=== PATIENT | male | born 1990 | race Caucasian/White ===

== ENCOUNTER 2018-05-04 20:44 | Emergency (ER) | payer OTHER, MEDICAID, SELFPAY ==
[2018-05-04 20:48] VITALS: BP 136/81; PULSE 85; RESP 16; TEMP 36.9; O2SAT 97; BMI 29.8
[2018-05-04] MEDS: TET,DIPH,PERTUSS(ACELL),VAC/PF 0.5 ML SYRINGE IM (20:58)
--- NOTE | 2018-05-04 21:08 | DI.RAD.S_ITS ---
PROCEDURE: XR FOOT RT MIN 3V INDICATIONS: Foot pain TECHNIQUE: 3 views of the foot were acquired. COMPARISON: None. FINDINGS: Bones: No fractures or dislocations. No suspicious bony lesions. Soft tissues: No tibiotalar joint effusion. Achilles tendon appears normal. There is soft tissue swelling over the plantar aspect of the forefoot. IMPRESSION: Apparent soft tissue swelling over the plantar aspect of the forefoot where no gas in the soft tissues or foreign body can be seen. No underlying osteomyelitis found. Dictated by: Andres Garcia M.D. on 05/04/2018 at 21:44 Approved by: Andres Garcia M.D. on 05/04/2018 at 21:49
[2018-05-04 22:30] VITALS: BP 127/83; PULSE 90; RESP 15; O2SAT 99
[2018-05-04] MEDS: levoFLOXacin 500 MG TABLET PO (22:43)
[2018-05-04 22:57] VITALS: BP 127/83; PULSE 81; RESP 16; TEMP 36.9; O2SAT 99
--- NOTE | 2018-05-05 04:20 | ED_ITS ---
HPI - Wound/Laceration General Chief Complaint: Wound/Laceration Stated Complaint: Stepped on sury Nail Time Seen by Provider: 05/04/18 21:00 Source: patient Mode of arrival: ambulatory Limitations: no limitations History of Present Illness HPI narrative: Patient presents to the emergency department for evaluation of a left foot injury after stepping a relatively clean nail while wearing a sandal. Patient has increased pain while ambulating. He denies any numbness, tingling or weakness. He has had no fever or chills. Patient unclear when last tetanus was, will update today Onset (ago): minute(s) Extremity Location: Left: foot Place: outdoors Context: accidental Associated symptoms: pain Related Data Previous Rx's Medication Instructions Recorded albuterol sulfate [Ventolin HFA] 0 puff INH Q4HP PRN #1 ea 07/20/16 ibuprofen 800 mg PO Q6HP PRN #60 tab 03/07/17 ciprofloxacin HCl 500 mg PO BID #14 tab 05/04/18 Allergies Allergy/AdvReac Type Severity Reaction Status Date / Time No Known Allergies Allergy Uncoded 12/24/17 12:39 Review of Systems Review of Systems All systems reviewed & are unremarkable except as noted in HPI and below Constitutional Denies chills, Denies fever(s), Denies lethargy and Denies weakness Eyes Denies change in vision, Denies eye discharge, Denies irritation and Denies loss of vision ENT Ears, Nose, Mouth, and Throat: Denies change in voice, Denies neck pain and Denies sore throat Cardiovascular Denies chest pain, Denies irregular heart rhythm, Denies lightheadedness, Denies palpitations, Denies dyspnea, Denies dyspnea on exertion and Denies orthopnea Respiratory Denies cough, Denies dyspnea, Denies dyspnea on exertion and Denies wheezing Gastrointestinal Gastrointestinal: Denies abdominal pain, Denies change in bowel habits, Denies diarrhea, Denies nausea and Denies vomiting Genitourinary Denies hematuria, Denies flank pain, Denies urinary incontinence and Denies urinary urgency Musculoskeletal Reports limited range of motion and Denies neck pain Integumentary/Breasts Denies pruritus, Denies erythema, Denies rash and Reports wounds Neurologic Denies confusion, Denies loss of vision and Denies weakness Psychiatric Denies anxiety, Denies confusion, Denies depression, Denies homicidal ideation and Denies suicidal ideation Endocrine Denies palpitations Hematologic/Lymphatic Denies easy bruising Allergic/Immunologic Denies wheezing Exam Narrative Exam Narrative: GEN: AOx3 and in mild distress EYES: Pupils are equal, round, and reactive to light and accommodation. Extraoccular muscles are intact bilaterally. There is no subconjunctival hemorrhage or exudate. CHEST: Lungs are clear to auscultation bilaterally and free of wheezes, rales, or rhonchi. Heart rate is regular rhythm, there are no murmurs, clicks, rubs, or gallops. There is no chest wall tenderness. ABD: Abdomen is soft and nontender. There is no guarding or rebound. Bowel sounds are normal in all 4 quadrants. There is no mass or organomegaly. EXT: Small puncture wound on plantar surface of left foot, no obvious foreign body Full painless ROM of all extremities with no loss of sensation or strength. SKIN: Warm, pink, and dry. No erythema or rash Initial Vital Signs Initial Vital Signs: Vital Signs Temperature 98.5 F 05/04/18 20:48 Pulse Rate 85 05/04/18 20:48 Respiratory Rate 16 05/04/18 20:48 Blood Pressure 136/81 H 05/04/18 20:48 Pulse Oximetry 97 05/04/18 20:48 Course Orders Ordered: ED Orders 05/04/18 21:08 XR foot RT min 3V Stat Discontinued Medications Diphtheria/Tetanus/Acell Pertussis (Adacel) 0.5 ml IM .ONCE ONE Stop: 05/04/18 20:58 Last Admin: 05/04/18 20:58 Dose: 0.5 ml Levofloxacin (Levaquin) 500 mg PO NOW ONE Stop: 05/04/18 22:40 Last Admin: 05/04/18 22:43 Dose: 500 mg Vital Signs - 8 hr 05/04/18 20:48 05/04/18 22:30 05/04/18 22:57 Temperature 98.5 F 98.5 F Pulse Rate 85 90 81 Respiratory Rate 16 15 16 Blood Pressure 136/81 H 127/83 H Blood Pressure [Left Arm] 127/83 H Pulse Oximetry 97 99 99 MDM - Wound/Laceration Differential Diagnosis Differential diagnosis: Likely laceration, abscess, abrasion and avulsion of skin Imaging Data Foot Xray: Radiologist's impression: PROCEDURE: XR FOOT RT MIN 3V INDICATIONS: Foot pain TECHNIQUE: 3 views of the foot were acquired. COMPARISON: None. FINDINGS: Bones: No fractures or dislocations. No suspicious bony lesions. Soft tissues: No tibiotalar joint effusion. Achilles tendon appears normal. There is soft tissue swelling over the plantar aspect of the forefoot. IMPRESSION: Apparent soft tissue swelling over the plantar aspect of the forefoot where no gas in the soft tissues or foreign body can be seen. No underlying osteomyelitis found. Dictated by: Andres Garcia M.D. on 05/04/2018 at 21:44 Approved by: Andres Garcia M.D. on 05/04/2018 at 21:49 Discharge Plan Departure Patient Disposition: Home Clinical Impression: Puncture wound Discharge Date/Time: 05/04/18 22:58 Interventions: ED Discharge Assessment Last Done: 05/04/18 22:57 Instructions: DI for Puncture Wound Activity Restrictions/Additional Instructions: *You have been diagnosed with [ puncture wound left foot ] *What to do: *Take medications as directed *Follow up with your primary care provider in 2-3 days, call for an appointment. Let them know you were seen in the Emergency Department and that we ask that you be seen in follow up *Return to ER if you should have any new, worsening or concerning symptoms , such as [ increasing redness, swelling or pain] Prescriptions: New ciprofloxacin HCl 500 mg tablet 500 mg PO BID Qty: 14 RF: 0 No Action albuterol sulfate [Ventolin HFA] 90 MCG/PUFF HFA aerosol inhaler INH Q4HP PRNQty: 1 RF: 0 ibuprofen 800 MG tablet 800 mg PO Q6HP PRNQty: 60 RF: 0
== END 2018-05-04 22:58 | disposition home or self-care (01) ==
PROVIDERS: Emergency Provider Emergency Medicine
DX: S91.332A Puncture wound without foreign body, left foot, initial encounter (principal); W45.0XXA Nail entering through skin, initial encounter
CPT/HCPCS: 73630; 90471; 99283; 90715

== ENCOUNTER 2018-10-24 14:50 | Emergency (ER) | payer OTHER, MEDICAID, SELFPAY ==
[2018-10-24 15:20] VITALS: BP 142/87; PULSE 111; RESP 18; TEMP 40.1; O2SAT 94; BMI 29.8
[2018-10-24 15:36] VITALS: TEMP 40.1
[2018-10-24] MEDS: ACETAMINOPHEN 325 MG TABLET 975 MG PO (15:36)
[2018-10-24 15:37] VITALS: TEMP 40.1
[2018-10-24] MEDS: ONDANSETRON 4 MG ODT SL (15:37)
[2018-10-24] MEDS: IBUPROFEN 400 MG TABLET 800 MG PO (15:37)
[2018-10-24 16:54] VITALS: TEMP 38.6
[2018-10-24 16:55] VITALS: TEMP 38.6
--- NOTE | 2018-10-24 17:47 | ED.FEVER ---
HPI - Fever General Chief Complaint: Fever Stated Complaint: fever,cough,sick Time Seen by Provider: 10/24/18 15:35 Source: patient and family (mother) Mode of arrival: ambulatory Limitations: no limitations History of Present Illness HPI Narrative: This is a 28-year-old male who comes to the emergency department for fever, cough cold and congestion and upper upper respiratory area is little bit and his chest. Patient states he feels little short of breath. No chest pain or pressure. Nonproductive cough. Patient has had some nausea and vomiting about twice daily. He states he has not been drinking much fluids because of it. No diarrhea or constipation. No urinary issues. He states he hurts from his head to his toes. Patient is any other specific medical problems at this time. He has a history of cleft palate repair. He does not smoke. He has mother was diagnosed clinically with flu and started on Tamiflu in the recent couple days. Related Data Previous Rx's Medication Instructions Recorded albuterol sulfate [Ventolin HFA] 0 puff INH Q4HP PRN #1 ea 07/20/16 ibuprofen 800 mg PO Q6HP PRN #60 tab 03/07/17 ciprofloxacin HCl 500 mg PO BID #14 tab 05/04/18 oseltamivir [Tamiflu] 75 mg PO Q12H 5 Days #9 cap 10/24/18 Allergies Allergy/AdvReac Type Severity Reaction Status Date / Time No Known Drug Allergies Allergy Verified 10/24/18 15:37 Review of Systems Review of Systems ROS Unobtainable: All systems reviewed & are unremarkable except as noted in HPI and below Constitutional Reports chills, Reports fever(s), Denies headache(s), Denies lethargy, Reports malaise and Denies weakness ENT Ears, Nose, Mouth, and Throat: Denies headache(s) and Reports nasal congestion Cardiovascular Denies chest pain, Denies syncope, Denies rapid heart rate, Denies edema, Reports dyspnea and Denies dyspnea on exertion Respiratory Denies change in phlegm color, Reports chest congestion, Reports cough, Denies hemoptysis, Denies excessive phlegm production, Denies pain on inspiration, Denies pain with cough, Reports dyspnea, Denies dyspnea on exertion, Denies stridor and Denies wheezing Gastrointestinal Gastrointestinal: Denies abdominal pain, Denies change in bowel habits, Denies diarrhea, Reports nausea and Reports vomiting Genitourinary Denies hematuria, Denies flank pain, Denies urinary frequency, Denies urinary hesitancy, Denies urinary incontinence and Denies urinary urgency Musculoskeletal Reports myalgias Integumentary/Breasts Denies rash Neurologic Denies syncope, Denies headache(s) and Denies weakness Allergic/Immunologic Denies wheezing [facility] Social History Smoking Status: Never smoker Social History Smoking Status: Never smoker Exam Narrative Exam Narrative: GEN: well nourished, male , alert and oriented x 3, patient appears to be in mild distress. Patient is sweaty. HEENT: Atraumatic, pupils are equal round reactive to light, extraocular movements are intact, nares are clear, TMs are clear with no fluid, there is no conjunctival pallor. Throat is clear without any exudates, erythema, tonsillar enlargement or uvular deviation HEART: Regular rate and rhythm without murmur, clicks, rubs. LUNGS:Lungs clear to auscultation, no wheezes, rales, crackles, chest moves symmetrically ABD:bowel sounds normal, soft, non-tender, no guarding, rebound, rigidity, no masses noted, no hepatosplenomegaly :No CVA tenderness MSCL: Non-tender, no muscle atrophy, muscles strength 5/5 upper and lower extremities, full range of motion, normal gait NEURO:CN 2-12 intact, sensation normal SKIN: no rash, no petechiae Initial Vital Signs Initial Vital Signs: Vital Signs Temperature 104.1 F H 10/24/18 15:20 Pulse Rate 111 H 10/24/18 15:20 Respiratory Rate 18 10/24/18 15:20 Blood Pressure 142/87 H 10/24/18 15:20 Pulse Oximetry 94 10/24/18 15:20 Course Orders Ordered: ED Orders 10/24/18 14:00 FLU A and B [Influenza A and B by PCR Rapid] Stat Discontinued Medications Acetaminophen (Tylenol) 975 mg PO NOW ONE Stop: 10/24/18 15:36 Last Admin: 10/24/18 15:36 Dose: 975 mg Ibuprofen (Advil) 800 mg PO NOW ONE Stop: 10/24/18 15:36 Last Admin: 10/24/18 15:37 Dose: 800 mg Ondansetron HCl (Zofran Odt) 4 mg SL NOW ONE Stop: 10/24/18 15:36 Last Admin: 10/24/18 15:37 Dose: 4 mg Ondansetron HCl (Zofran Odt Prepack) 1 bottle MISC SEEINSTR ONE Stop: 10/24/18 17:45 Last Admin: 10/24/18 17:50 Dose: 1 bottle Oseltamivir Phosphate (Tamiflu) 75 mg PO NOW ONE Stop: 10/24/18 17:44 Last Admin: 10/24/18 17:50 Dose: 75 mg Vital Signs - 8 hr 10/24/18 15:20 10/24/18 15:36 10/24/18 15:37 Temperature 104.1 F H 104.1 F H 104.1 F H Pulse Rate 111 H Respiratory Rate 18 Blood Pressure 142/87 H Blood Pressure [Left Arm] Pulse Oximetry 94 10/24/18 16:54 10/24/18 16:55 10/24/18 18:10 Temperature 101.4 F H 101.4 F H 100.8 F H Pulse Rate 99 H Respiratory Rate Blood Pressure Blood Pressure [Left Arm] 120/70 Pulse Oximetry 96 MDM - Fever Lab Data Attestation: I reviewed the patient's lab results. Lab Results 10/24/18 Range/Units 14:00 Influenza A & B (PCR) Positive, type a A (Negative) MDM Narrative Medical decision making narrative: Patient has not vomited in department but nauseated at times. Given zofran prepack. discussed risk/benefits of Tamiflu with patient and he elects to start as he is still in the window. First dose given in ED. Discharge Plan Departure Patient Disposition: Home Clinical Impression: Influenza Discharge Date/Time: 10/24/18 18:16 Interventions: ED Discharge Assessment Last Done: 10/24/18 18:15 Instructions: DI for Influenza -- Adult Activity Restrictions/Additional Instructions: Follow up with your physician in the next 5-7 days if symptoms are not resolving. Take Zofran sublingually/under the tongue every 6 hr as needed for nausea. Make sure your drinking plenty of fluids to stay hydrated. Continue Tamiflu twice daily x 5 days. Continue Tylenol up to 1000 mg every 8 hr and/or ibuprofen 600 mg every 6 hr as needed for fever and/or pain. Return to the emergency department for worsening symptoms, new shortness breath, chest pain or pressure, coughing up blood, passing out, persistent vomiting, signs of dehydration or other new or concerning symptoms. Prescriptions: New oseltamivir [Tamiflu] 75 mg capsule 75 mg PO Q12H 5 Days Qty: 9 RF: 0 No Action albuterol sulfate [Ventolin HFA] 90 MCG/PUFF HFA aerosol inhaler INH Q4HP PRNQty: 1 RF: 0 ibuprofen 800 MG tablet 800 mg PO Q6HP PRNQty: 60 RF: 0 ciprofloxacin HCl 500 mg tablet 500 mg PO BID Qty: 14 RF: 0
[2018-10-24] MEDS: OSELTAMIVIR 75 MG CAPSULE PO (17:50)
[2018-10-24] MEDS: ONDANSETRON 4 MG ODT PREPACK 1 BOTTLE MISC (17:50)
[2018-10-24 18:10] VITALS: BP 120/70; PULSE 99; TEMP 38.2; O2SAT 96
== END 2018-10-24 18:16 | disposition home or self-care (01) ==
PROVIDERS: Internal Medicine; Emergency Provider Emergency Medicine
DX: J11.1 Influenza due to unidentified influenza virus with other respiratory manifestations (principal)
CPT/HCPCS: 87400; 99282; 99283

== ENCOUNTER 2021-06-26 19:40 | Emergency (ER) | payer OTHER, MEDICAID, SELFPAY ==
--- NOTE | 2021-06-26 19:45 | DI.RAD.S_ITS ---
PROCEDURE: XR CHEST 2V INDICATIONS: cough TECHNIQUE: 2 views of the chest were acquired. COMPARISON: None. FINDINGS: Surgical changes and devices: None. Lungs and pleura: Lungs are clear. No pleural effusions or pneumothorax. Mediastinum: Mediastinal contours are normal. Heart size is normal. Bones and chest wall: No suspicious bony abnormalities. Soft tissues appear unremarkable. IMPRESSION: No consolidations. Dictated by: Patti De La Rosa M.D. on 06/26/2021 at 20:37 Approved by: Patti De La Rosa M.D. on 06/26/2021 at 20:37
[2021-06-26 19:48] VITALS: BP 153/89; PULSE 116; RESP 22; TEMP 36.1; O2SAT 97
--- NOTE | 2021-06-26 19:52 | ED.SOB ---
HPI - SOB/Dyspnea General Chief Complaint: Upper Respiratory Symptoms Stated Complaint: coughing, severe, headache, nausea Time Seen by Provider: 06/26/21 19:45 Source: patient Mode of arrival: Ambulatory Limitations: no limitations History of Present Illness HPI Narrative: 31-year-old male nonsmoker with history of asthma presents with a chief complaint of hacking type cough for the past few weeks and concern for COVID. He denies any fever or chills and states that on occasion he does bring up some off colored sputum. He denies any chest pain. He is not dizzy nor weak or lightheaded. He denies nausea or vomiting. He does state that after significant coughing he has developed some mild headache. This headache is worse when he coughs improves with rest. It has been improved with Tylenol and Motrin up until now. He denies of any neck. He has no neurologic symptoms blurred vision, trouble speech or extremity numbness, tingling or weakness. He did receive his COVID vaccine Related Data Previous Rx's Medication Instructions Recorded albuterol sulfate 90 mcg/actuation 0 puff INH Q4HP PRN #1 ea 07/20/16 aerosol inhaler (Ventolin HFA) ibuprofen 800 mg tablet 800 mg PO Q6HP PRN #60 tab 03/07/17 ciprofloxacin HCl 500 mg tablet 500 mg PO BID #14 tab 05/04/18 azithromycin 250 mg tablet See Rx Instructions .ROUTE 06/26/21 .COMPLEX #6 tab benzonatate 100 mg capsule 100 mg PO TID PRN #14 cap 06/26/21 (Juliette Fink) Allergies Allergy/AdvReac Type Severity Reaction Status Date / Time No Known Drug Allergies Allergy Verified 10/24/18 15:37 Review of Systems Review of Systems Narrative: GENERAL: Denies chills, fatigue, malaise, fever, sweats. HEENT: Denies sinus pain, ear pain, sore throat, difficulty swallowing, dizziness. RESPIRATORY: See HPI CARDIOVASCULAR: Denies chest pain, palpitations, orthopnea, edema, GASTROINTESTINAL: Denies nausea, vomiting, abdominal pain, diarrhea, constipation, melena. : Denies dysuria, frequency, incontinence, hematuria, urinary retention. MUSCULOSKELETAL: denies weakness, joint pain, or bony pain SKIN: Denies rash, skin lesions, or other NEUROLOGIC: See HPI PSYCHIATRIC: No concerning psychosocial issues. 12 point review of systems is negative except for those stated above Patient History Social History Smoking Status: Never smoker Smoking Status: Never smoker alcohol intake frequency: holidays/special occasions only Substance Use Type: does not use Exam Narrative Exam Narrative: GENERAL: [31] year old patient appears stated age. Well-developed patient, in mild distress. GCS 15 HEAD: Atraumatic. Normocephalic. EYES: Pupils equal round and reactive. Extraocular motions intact. No scleral icterus. No injection or drainage. ENT: Nose without bleeding, purulent drainage. Throat without erythema, tonsillar hypertrophy or exudate. Airway patent. NECK: Trachea midline. Non tender, no meningeal signs CARDIOVASCULAR: Regular rate and rhythm without murmurs, gallops, or rubs. RESPIRATORY: Largely clear to auscultation with some mild expiratory wheeze, deep breath illicits a cough. No obvious crackles, rales or rhonchi. No significant work of breathing, no need for supplemental oxygen GASTROINTESTINAL: Abdomen soft, non-tender, nondistended. EXTREMITIES: No edema or joint tenderness. BACK: Nontender without deformity or crepitance. No flank tenderness. NEURO: AOx3. SKIN: No rash or erythema of visible areas Initial Vital Signs Initial Vital Signs: Vital Signs Temperature 97 F L 06/26/21 19:48 Pulse Rate 116 H 06/26/21 19:48 Respiratory Rate 22 06/26/21 19:48 Blood Pressure 153/89 H 06/26/21 19:48 Pulse Oximetry 97 06/26/21 19:48 Course Orders Ordered: Discontinued Medications Acetaminophen (Acetaminophen 325 Mg Tablet) 650 mg PO NOW ONE Stop: 06/26/21 22:24 Last Admin: 06/26/21 22:32 Dose: 650 mg Documented by: OKSANA Albuterol (Albuterol Hfa Mdi 60 Puff/8 Gm Inhaler) 1 puff INH NOW ONE Stop: 06/26/21 22:24 Last Admin: 06/26/21 22:32 Dose: 1 puff Documented by: OKSANA Reevaluation(s) Reevaluation #1: Marked improvement with above-stated therapies Vital Signs Vital signs: Vital Signs - 8 hr 06/26/21 22:32 06/26/21 23:21 Pulse Rate 95 H 94 H Respiratory Rate 18 Blood Pressure 137/78 Pulse Oximetry 97 97 MDM - SOB/Dyspnea Lab Data Labs: Lab Results 06/26/21 Range/Units 19:50 SARS-CoV-2 (PCR) Negative (Negative) Imaging Data Chest x-ray: Radiologist's Impression: Ab Johnson??31??M??1990 ? Allergy/Adv: No Known Drug Allergies Close Chest X-Ray (Signed) Patti De La Rosa - 06/26/21 Foot X-Ray (Signed) Andres Garcia - 05/04/18 Radiology - Historical 03/07/17 Launch?[address] [address] XRay Report Signed Patient: Ab Johnson MR#: [id number] : 1990 Acct:[id number] Age/Sex: 31 / M Date of Service: 06/26/21 Loc: ED Accession Number: [id number] ?? Procedure: XR chest 2V Ordering Provider: Yobany Carbajal D.O. PROCEDURE:? XR CHEST 2V ? INDICATIONS:? cough ? TECHNIQUE:? 2 views of the chest were acquired.? ? COMPARISON:? None. ? FINDINGS:? ? Surgical changes and devices:? None.? ? Lungs and pleura:? Lungs are clear.? No pleural effusions or pneumothorax.? ? Mediastinum:? Mediastinal contours are normal.? Heart size is normal.? ? Bones and chest wall:? No suspicious bony abnormalities.? Soft tissues appear unremarkable.? ? IMPRESSION:? No consolidations. ? ? Dictated by: Patti De La Rosa M.D. on 06/26/2021 at 20:37 ? ? Approved by: Patti De La Rosa M.D. on 06/26/2021 at 20:37 ? MDM Narrative Medical decision making narrative: Patient has a very reassuring history and physical exam, his response to bronchodilators is reassuring. Chest x-ray shows no focal consolidation. Given his history and occasion to produce colored sputum I did cover for any atypical pneumonia. He has no evidence of respiratory distress, does not require supplemental oxygen. Headache considerations include, but not limited to: Subarachnoid hemorrhage, but unlikely as patient denies sudden onset of pain, not worst of life, or neck pain Meningitis considered, but thought unlikely given lack of Brudzinski's, Kernig's sign, altered mental status or fever Giant cell arteritis considered, but thought unlikely given lack of unilateral findings, pain in bahai, vision change HTN Emergency considered, but thought unlikely given normal vitals Other serious diagnoses considered unlikely given lack of red flag findings such as sudden onset, increasing frequency, immunocompromise, systemic signs (fever, chills, stiff neck, or rash), focal neurologic findings, trauma, blood thinners, etc. Discharge Plan Departure Patient Disposition: Home Clinical Impression: Cough, Atypical pneumonia Instructions: Cough Activity Restrictions/Additional Instructions: *You have been diagnosed with [ongoing cough, potentially due to atypical pneumonia. Chest x-ray is clear and your COVID swab was negative. *What to do: *Please continue to take your regular medications as directed. [ x] New medication prescriptions sent to your pharmacy: [x ] [ ] New medication written as a paper prescription [ ] No new medications given *Please follow up with your primary care provider in 2-3 days, call for an appointment. Let them know you were seen in the Emergency Department and that we ask that you be seen in follow up. We will electronically transmit a record of today's note if your PCP is in our system *If you do not have a primary care provider please contact the [facility] Resource line at [phone]. They will ask some questions about your medical history and help get you set up with a doctor in the community. *Return to Emergency Department if you should have any new, worsening or concerning symptoms, such as [fever greater than 101 F, shaking chills, worsening pain, persistent vomiting or other bothersome symptoms] Prescriptions: New azithromycin 250 mg tablet See Rx Instructions .ROUTE .COMPLEX Qty: 6 RF: 0 benzonatate [Tessalon Perles] 100 mg capsule 100 mg PO TID PRN (Reason: cough) Qty: 14 RF: 0 No Action albuterol sulfate [Ventolin HFA] 90 MCG/PUFF HFA aerosol inhaler 0 puff INH Q4HP PRNQty: 1 RF: 0 ibuprofen 800 MG tablet 800 mg PO Q6HP PRNQty: 60 RF: 0 ciprofloxacin HCl 500 mg tablet 500 mg PO BID Qty: 14 RF: 0
[2021-06-26 20:19] LABS: COVID19 -Nasal RAPID Negative (Negative)
[2021-06-26 22:25] VITALS: BP 136/88; PULSE 108; RESP 16; TEMP 35.1; O2SAT 96
[2021-06-26 22:32] VITALS: PULSE 95; RESP 18; O2SAT 97
[2021-06-26] MEDS: ACETAMINOPHEN 325 MG TABLET 650 MG PO (22:32)
[2021-06-26] MEDS: ALBUTEROL HFA MDI 60 PUFF/8 GM INHALER INH (22:32)
[2021-06-26 23:21] VITALS: BP 137/78; PULSE 94; O2SAT 97
== END 2021-06-26 23:36 | disposition home or self-care (01) ==
PROVIDERS: Emergency Provider Emergency Medicine
DX: J18.9 Pneumonia, unspecified organism (principal); R05.9 Cough, unspecified; Z20.822 Contact with and (suspected) exposure to COVID-19
CPT/HCPCS: 71046; 87635; 94640; 99283; C9803; A9270

== ENCOUNTER 2021-09-09 14:03 | Emergency (ER) | payer OTHER, MEDICAID, SELFPAY ==
[2021-09-09 14:09] VITALS: BP 155/79; PULSE 78; RESP 20; TEMP 36.4; O2SAT 99
--- NOTE | 2021-09-09 14:12 | DI.RAD.S_ITS ---
PROCEDURE: XR TIBIA FUBULA RT 2V INDICATIONS: fall TECHNIQUE: 2 views of the tibia and fibula were acquired. COMPARISON: None. FINDINGS: Bones: No fractures or dislocations. No suspicious bony lesions. Soft tissues: No suspicious soft tissue calcifications or masses. IMPRESSION: Normal right tibia and fibula. Dictated by: Olivier Minor M.D. on 09/09/2021 at 13:35 Approved by: Olivier Minor M.D. on 09/09/2021 at 13:35
--- NOTE | 2021-09-09 14:12 | DI.RAD.S_ITS ---
PROCEDURE: XR KNEE RT 3V INDICATIONS: fall TECHNIQUE: 3views of the knee were acquired. COMPARISON: None. FINDINGS: Bones: No acute fractures or dislocations. No suspicious bony lesions. Soft tissues: No joint effusion. No suspicious soft tissue calcifications. IMPRESSION: No acute osseous abnormality. If clinical suspicion and/or symptoms persist, additional imaging with repeat plain films, or advanced imaging (e.g. CT, MRI) may be helpful for further assessment. Dictated by: Sánchez Esparza M.D. on 09/09/2021 at 14:38 Approved by: Sánchez Esparza M.D. on 09/09/2021 at 14:39
--- NOTE | 2021-09-09 14:49 | ED_ITS ---
HPI - Extremity Injury (Lower) <Tonny Ward PA-C - Last Filed: 09/09/21 17:52> General Chief Complaint: Extremity Injury, Lower Stated Complaint: pt. fell 2 hours ago Time Seen by Provider: 09/09/21 14:19 Source: patient Mode of arrival: Ambulatory History of Present Illness HPI Narrative: Patient is a 31-year-old male presenting to the emergency department today for an evaluation right knee pain. Patient states that he was outside removing snow from his mother's car when he came inside to use restroom and slipped on the floor. He states that he landed directly on his right knee and began to experience pain immediately after the fall. Of note, patient states he is not feel dizzy or lightheaded prior to falling any denies hitting his head or losing consciousness as a result of the fall. Patient denies fever, chills, chest pain, cough, shortness of breath, nausea, vomiting, diarrhea, dysuria, hematuria, or numbness and tingling in the bilateral lower extremities. No other concerns were voiced at this time. Related Data Previous Rx's Medication Instructions Recorded albuterol sulfate 90 mcg/actuation 0 puff INH Q4HP PRN #1 ea 07/20/16 aerosol inhaler (Ventolin HFA) ibuprofen 800 mg tablet 800 mg PO Q6HP PRN #60 tab 03/07/17 ciprofloxacin HCl 500 mg tablet 500 mg PO BID #14 tab 05/04/18 azithromycin 250 mg tablet See Rx Instructions .ROUTE 06/26/21 .COMPLEX #6 tab benzonatate 100 mg capsule 100 mg PO TID PRN #14 cap 06/26/21 (Juliette Fink) Allergies Allergy/AdvReac Type Severity Reaction Status Date / Time No Known Drug Allergies Allergy Verified 10/24/18 15:37 Review of Systems <Tonny Ward PA-C - Last Filed: 09/09/21 17:52> Constitutional Constitutional: Denies chills, Denies fatigue, Denies fever(s), Denies frequent falls, Denies lethargy and Denies weakness Eyes Eyes: Denies loss of vision ENT Ears, Nose, Mouth, and Throat: Denies dizziness and Denies neck pain Cardiovascular Cardiovascular: Denies chest pain, Denies irregular heart rhythm, Denies lightheadedness, Denies palpitations, Denies dyspnea, Denies dyspnea on exertion and Denies orthopnea Respiratory Respiratory: Denies cough, Denies dyspnea, Denies dyspnea on exertion and Denies wheezing Gastrointestinal Gastrointestinal: Denies abdominal pain, Denies change in bowel habits, Denies diarrhea, Denies nausea and Denies vomiting Genitourinary Genitourinary: Denies hematuria, Denies flank pain, Denies urinary incontinence and Denies urinary urgency Musculoskeletal Musculoskeletal: Denies back pain, Reports arthralgias (Right knee), Denies muscle weakness, Denies neck pain, Denies numbness and Denies tingling Integumentary/Breasts Skin/Breast: Denies pruritus, Denies erythema, Denies rash and Denies wounds Neurologic Neurologic: Denies behavioral changes, Denies confusion, Denies dizziness, Denies frequent falls, Denies loss of vision, Denies numbness, Denies tingling and Denies weakness Psychiatric Psychiatric: Denies behavioral changes and Denies confusion Endocrine Endocrine: Denies fatigue and Denies palpitations Allergic/Immunologic Allergic/Immunologic: Denies wheezing Patient History <Tonny Ward PA-C - Last Filed: 09/09/21 17:52> Social History Smoking Status: Never smoker Smoking Status: Never smoker alcohol intake frequency: holidays/special occasions only Substance Use Type: does not use Exam <Tonny Ward PA-C - Last Filed: 09/09/21 17:52> Narrative Exam Narrative: GENERAL: 31 year old patient appears stated age. Well-developed patient, in no acute distress. HEAD: Atraumatic. Normocephalic. EYES: Pupils equal round and reactive. Extraocular motions intact. No scleral icterus. No injection or drainage. ENT: Nose without bleeding, purulent drainage. Throat without erythema, tonsillar hypertrophy or exudate. Airway patent. NECK: Trachea midline. Non tender CARDIOVASCULAR: Regular rate and rhythm without murmurs, gallops, or rubs. RESPIRATORY: Clear to auscultation. Breath sounds equal bilaterally. No wheezes, rales, or rhonchi. GASTROINTESTINAL: Abdomen soft, non-tender, nondistended. EXTREMITIES: No edema or joint tenderness. No appreciable joint laxity on exam. No deformity, ecchymosis, crepitance, or erythema noted over the right knee. BACK: Nontender without deformity or crepitance. No flank tenderness. NEURO: AOx3. SKIN: No rash or erythema of visible areas Initial Vital Signs Initial Vital Signs: Vital Signs Temperature 97.5 F L 09/09/21 14:09 Pulse Rate 78 09/09/21 14:09 Respiratory Rate 20 09/09/21 14:09 Blood Pressure 155/79 H 09/09/21 14:09 Pulse Oximetry 99 09/09/21 14:09 Cardio Pulses: dorsalis pedis present bilaterally <Yobany Carbajal DO - Last Filed: 09/13/21 03:52> Initial Vital Signs Initial Vital Signs: Vital Signs Temperature 97.5 F L 09/09/21 14:09 Pulse Rate 78 09/09/21 14:09 Respiratory Rate 20 09/09/21 14:09 Blood Pressure 155/79 H 09/09/21 14:09 Pulse Oximetry 99 09/09/21 14:09 Course <AGUSTIN Houston Last Filed: 09/09/21 17:52> Course Course Narrative: Right knee x-ray, right tibia and fibula x-rays ordered. Orders Ordered: ED Orders 09/09/21 14:12 XR knee RT 3V Stat XR tibia fibula RT 2V Stat Vital Signs Vital signs: Vital Signs - 8 hr 09/09/21 14:09 Temperature 97.5 F L Pulse Rate 78 Respiratory Rate 20 Blood Pressure 155/79 H Pulse Oximetry 99 <oYbany Carbajal DO - Last Filed: 09/13/21 03:52> Orders Ordered: ED Orders 09/09/21 14:12 XR knee RT 3V Stat XR tibia fibula RT 2V Stat Vital Signs Vital signs: Vital Signs - 8 hr 09/09/21 14:09 Temperature 97.5 F L Pulse Rate 78 Respiratory Rate 20 Blood Pressure 155/79 H Pulse Oximetry 99 MDM - Extremity Injury (Lower) <AGUSTIN [place] Last Filed: 09/09/21 17:52> Imaging Data Extremity x-ray #1: Radiologist's Impression: PROCEDURE:? XR TIBIA FUBULA RT 2V ? INDICATIONS:? fall ? TECHNIQUE:? 2 views of the tibia and fibula were acquired.? ? COMPARISON:? None. ? FINDINGS:? ? Bones:? No fractures or dislocations.? No suspicious bony lesions.? ? Soft tissues:? No suspicious soft tissue calcifications or masses.? ? IMPRESSION:? Normal right tibia and fibula. ? ? Dictated by: Olivier Minor M.D. on 09/09/2021 at 13:35 ? ? Approved by: Olivier Minor M.D. on 09/09/2021 at 13:35 ? Extremity x-ray #2: Radiologist's Impression: PROCEDURE:? XR KNEE RT 3V ? INDICATIONS:? fall ? TECHNIQUE:? 3views of the knee were acquired.? ? COMPARISON:? None. ? FINDINGS:? ? Bones:? No acute fractures or dislocations.? No suspicious bony lesions.? ? Soft tissues:? No joint effusion.? No suspicious soft tissue calcifications.? ? ? IMPRESSION:? No acute osseous abnormality.? If clinical suspicion and/or symptoms persist, additional imaging with repeat plain films, or advanced imaging (e.g. CT, MRI) may be helpful for further assessment. ? ? Dictated by: Sánchez Esparza M.D. on 09/09/2021 at 14:38 ? ? Approved by: Sánchez Esparza M.D. on 09/09/2021 at 14:39 ? MDM Narrative Medical decision making narrative: To consider fracture versus dislocation versus sprain versus strain. Overall physical examination, history, and imaging in the ER today reassuring. Discussed with patient the results of x-rays. At this time patient feels comfortable being discharged home. Strict return precautions were discussed with the patient prior to discharge. Discharge Plan Departure Patient Disposition: Home Clinical Impression: Acute knee pain Instructions: DI for Knee Pain Activity Restrictions/Additional Instructions: *You have been diagnosed with acute right knee pain *What to do: *Please continue to take your regular medications as directed. [ ] New medication prescriptions sent to your pharmacy: [ ] [ ] New medication written as a paper prescription [X] No new medications given *Please follow up with your primary care provider in 2-3 days, call for an appointment. Let them know you were seen in the Emergency Department and that we ask that you be seen in follow up. We will electronically transmit a record of today's note if your PCP is in our system *If you do not have a primary care provider please contact the [facility] Resource line at [phone]. They will ask some questions about your medical history and help get you set up with a doctor in the community. *Return to Emergency Department if you should have any new, worsening or concerning symptoms, such as fever greater than 101 F, shaking chills, worsening pain, persistent vomiting or other bothersome symptoms. Prescriptions: No Action albuterol sulfate [Ventolin HFA] 90 MCG/PUFF HFA aerosol inhaler 0 puff INH Q4HP PRNQty: 1 0RF ibuprofen 800 MG tablet 800 mg PO Q6HP PRNQty: 60 0RF azithromycin 250 mg tablet See Rx Instructions .ROUTE .COMPLEX Qty: 6 0RF Rx Instructions: take 500 mg today (day 1), then 250 mg for 4 days (days 2-5) benzonatate [Tessalon Perles] 100 mg capsule 100 mg PO TID PRN (Reason: cough) Qty: 14 0RF ciprofloxacin HCl 500 mg tablet 500 mg PO BID Qty: 14 0RF <Yobany Carbajal DO - Last Filed: 09/13/21 03:52> Cosign ED Attending Cosignature Attestation: I was immediately available in the department for consultation. This documentation has been reviewed and I agree with assessment and plan. Supervised by Yobany Carbajal DO
== END 2021-09-09 14:57 | disposition home or self-care (01) ==
PROVIDERS: Emergency Provider Physician Assistant
DX: M25.561 Pain in right knee (principal)
CPT/HCPCS: 73562; 73590; 99283

== ENCOUNTER → 2021-10-01 17:40 | Outpatient (CLI) | payer OTHER, MEDICAID, SELFPAY ==
[2021-10-01 18:14] LABS: COVID19 -Nasal RAPID Negative (Negative)
== END ==
PROVIDERS: Referring Provider Nurse Practitioner Family; Visit Provider Nurse Practitioner Family
DX: Z20.822 Contact with and (suspected) exposure to COVID-19 (principal)
CPT/HCPCS: 87635

== ENCOUNTER 2022-01-12 19:34 | Emergency (ER) | payer OTHER, MEDICAID, SELFPAY ==
--- NOTE | 2022-01-12 19:36 | ED.LOWEXIN ---
HPI - Extremity Injury (Lower) General Chief Complaint: Extremity Injury, Lower Stated Complaint: left ankle injury Time Seen by Provider: 01/12/22 19:36 History of Present Illness HPI Narrative: 31-year-old male nonsmoker with noncontributory medical history presents with family in the chief complaint of a left ankle injury suffered just prior to arrival. He states that he was walking and felt a pop in his ankle and then rolled it which caused him to fall. He now has pain with palpation and ambulation in the lateral and medial aspects of left ankle. He denies any numbness, tingling or weakness. He has no knee or hip injury that is associated. He has no chest pain or shortness of breath and denies any prodromal symptoms contributing to his fall such as dizziness, weakness or lightheadedness Related Data Previous Rx's Medication Instructions Recorded albuterol sulfate 90 mcg/actuation 0 puff INH Q4HP PRN #1 ea 07/20/16 aerosol inhaler (Ventolin HFA) ibuprofen 800 mg tablet 800 mg PO Q6HP PRN #60 tab 03/07/17 ciprofloxacin HCl 500 mg tablet 500 mg PO BID #14 tab 05/04/18 azithromycin 250 mg tablet See Rx Instructions .ROUTE 06/26/21 .COMPLEX #6 tab benzonatate 100 mg capsule 100 mg PO TID PRN #14 cap 06/26/21 (Juliette Fink) Allergies Allergy/AdvReac Type Severity Reaction Status Date / Time No Known Drug Allergies Allergy Verified 10/24/18 15:37 Review of Systems Review of Systems Narrative: GENERAL: Denies chills, fatigue, malaise, fever, sweats. HEENT: Denies sinus pain, ear pain, sore throat, difficulty swallowing, dizziness. RESPIRATORY: Denies dyspnea, cough, wheezing, hemoptysis, sputum. CARDIOVASCULAR: Denies chest pain, palpitations, orthopnea, edema, GASTROINTESTINAL: Denies nausea, vomiting, abdominal pain, diarrhea, constipation, melena. : Denies dysuria, frequency, incontinence, hematuria, urinary retention. MUSCULOSKELETAL: See HPI SKIN: Denies rash, skin lesions, or other NEUROLOGIC: Denies weakness, headache, numbness, change in speech, confusion, seizures, incoordination. PSYCHIATRIC: No concerning psychosocial issues. 12 point review of systems is negative except for those stated above Patient History Social History Smoking Status: Never smoker Smoking Status: Never smoker alcohol intake frequency: holidays/special occasions only Substance Use Type: does not use Exam Narrative Exam Narrative: GEN: AOx3 and in mild distress EYES: Pupils are equal, round, and reactive to light and accommodation. Extraoccular muscles are intact bilaterally. There is no subconjunctival hemorrhage or exudate. CHEST: Lungs are clear to auscultation bilaterally and free of wheezes, rales, or rhonchi. Heart rate is regular rhythm, there are no murmurs, clicks, rubs, or gallops. There is no chest wall tenderness. ABD: Abdomen is soft and nontender. There is no guarding or rebound. Bowel sounds are normal in all 4 quadrants. There is no mass or organomegaly. EXT: Full but painful range of motion of left ankle with swelling but no obvious deformity, no evidence of ligamentous instability. No pain on squeeze test or palpation of knee or foot. This is closed, isolated and neurovascularly intact, pain on palpation of bilateral malleolus, no anterior pain overlying talus SKIN: Warm, pink, and dry. No erythema or rash Initial Vital Signs Initial Vital Signs: Vital Signs Temperature 97.6 F 01/12/22 19:42 Pulse Rate 97 H 01/12/22 19:42 Respiratory Rate 18 01/12/22 19:42 Blood Pressure 141/80 H 01/12/22 19:42 Pulse Oximetry 96 01/12/22 19:42 Procedures Orthopedic Splinting/Casting Injury #1: Side: left Lower Extremity Injury Location: ankle Lower Extremity Immobilizer: boot orthosis Post splinting neuro exam: intact Post splinting vascular exam: intact Placed by: Nursing Course Orders Ordered: ED Orders 01/12/22 19:38 XR ankle LT min 3V Stat Vital Signs Vital signs: Vital Signs - 8 hr 01/12/22 19:42 Temperature 97.6 F Pulse Rate 97 H Respiratory Rate 18 Blood Pressure 141/80 H Pulse Oximetry 96 MDM - Extremity Injury (Lower) Imaging Data Extremity x-ray #1: Radiologist's Impression: No fracture or dislocation Discharge Plan Departure Patient Disposition: Home Clinical Impression: Acute left ankle pain Instructions: DI for Ankle Sprain Activity Restrictions/Additional Instructions: *You have been diagnosed with [Left ankle sprain with questionable, old injury to Talus. Xrays have yet to be ready by the radiologist and if there is a discrepancy in diagnosis or plan I will call you ] *What to do: *Please continue to take your regular medications as directed. [ ] New medication prescriptions sent to your pharmacy: [ ] [ ] New medication written as a paper prescription [x] Tylenol and occasional Motrin for pain *Please follow up with Dr. Jeremiah Brooks] of [facility] in 2-3 days, call for an appointment. Let them know you were seen in the Emergency Department and that we ask that you be seen in follow up. We will electronically transmit a record of today's note if your PCP is in our system *Return to Emergency Department if you should have any new, worsening or concerning symptoms, such as [worsening pain, significant swelling, cold extremities, numbness, tingling, weakness or other bothersome symptoms Splint Care: Keep splint clean and dry. Elevated affected body part to decrease swelling. OK to use ice pack on the affected body part. Use for 15-20 minutes each time, for 5-6x per day. If you develop worsening pain, numbness, tingling, discoloration of the affected body part, loosen the splint and either see your doctor for an urgent re-assessment, or return to the Emergency Department. Return to the Emergency Department for any new or worsening symptoms. Prescriptions: No Action albuterol sulfate [Ventolin HFA] 90 MCG/PUFF HFA aerosol inhaler 0 puff INH Q4HP PRNQty: 1 0RF ibuprofen 800 MG tablet 800 mg PO Q6HP PRNQty: 60 0RF azithromycin 250 mg tablet See Rx Instructions .ROUTE .COMPLEX Qty: 6 0RF Rx Instructions: take 500 mg today (day 1), then 250 mg for 4 days (days 2-5) benzonatate [Tessalon Perles] 100 mg capsule 100 mg PO TID PRN (Reason: cough) Qty: 14 0RF ciprofloxacin HCl 500 mg tablet 500 mg PO BID Qty: 14 0RF Referrals: Miscellaneous,[facility] [Primary Care Provider] - Lulu Brooks MD [Physician] -
--- NOTE | 2022-01-12 19:38 | DI.RAD.S_ITS ---
PROCEDURE: XR ANKLE LT MIN 3V INDICATIONS: pain and swelling after injury TECHNIQUE: 3 views of the ankle were acquired. COMPARISON: None. FINDINGS: Bones: No fractures or dislocations. Ankle mortise is normally aligned. No suspicious bony lesions. Soft tissues: No tibiotalar joint effusion. Achilles tendon appears normal. IMPRESSION: No visualized acute fracture or dislocation. However, if clinical concern and/or pain persist, short interval imaging followup in 7-10 days is recommended, as occult injury cannot be definitively excluded. Dictated by: Patti De La Rosa M.D. on 01/12/2022 at 20:08 Approved by: Patti De La Rosa M.D. on 01/12/2022 at 20:08
[2022-01-12 19:42] VITALS: BP 141/80; PULSE 97; RESP 18; TEMP 36.4; O2SAT 96; BMI 30.3
== END 2022-01-12 20:10 | disposition home or self-care (01) ==
PROVIDERS: Emergency Provider Emergency Medicine
DX: M25.572 Pain in left ankle and joints of left foot (principal); X50.1XXA Overexertion from prolonged static or awkward postures, initial encounter
CPT/HCPCS: 73610; 99281; 99283

== ENCOUNTER → 2022-03-01 09:15 | Outpatient (CLI) | payer OTHER, MEDICAID, SELFPAY ==
[2022-03-01 09:52] LABS: Add Manual Diff / Slide Review NO; Basophils Absolute Auto 0 /uL (0-100); Basophils Percent Auto 0.6 % (0-2); Eosinophils Absolute Auto 100 /uL (0-450); Eosinophils Percent Auto 2.1 % (2-4); Hematocrit 41.7 % (41-53); Hemoglobin 14.8 g/dL (13.5-17.5); Lymphocytes Absolute Auto 2200 /uL (1100-4500); Mean Corpuscular HGB Conc 35.4 % (30-36); Mean Corpuscular Hemoglobin 29.9 PG (26-34); Mean Corpuscular Volume 84.6 fL (80-100); Monocytes Absolute Auto 600 /uL (0-900); Monocytes Percent Auto 9.4 % (3-14); Neutrophils Absolute Auto 3200 /uL (1500-7000); Neutrophils Percent Auto 51.9 % (50-75); Platelet Count 258 X10^3/uL (150-400); Red Blood Cell Count 4.93 X10^6/uL (4.5-5.9); Red Cell Distribution Width 12.9 % (11.6-14.8); White Blood Cell Count 6.1 X10^3/uL (4.5-11.0)
[2022-03-01 09:54] LABS: Appearance Urine UA CLEAR; Bilirubin Urine UA NEGATIVE (NEGATIVE); Color Urine UA YELLOW; Glucose Urine UA NEGATIVE (Negative); Ketones Urine UA NEGATIVE (NEGATIVE); Leukocyte Esterase Urine UA NEGATIVE (NEGATIVE); Nitrite Urine UA NEGATIVE (Negative); Occult Blood Urine UA 1+ (Negative); Protein Urine UA NEGATIVE (Negative); Urobilinogen Urine UA 0.2 E.U./dL (0.2); pH Urine UA 5.5 (4.5-8.0)
[2022-03-01 11:00] LABS: Bacteria Urine Few (2-10); Culture Indicated Urine Cult Not Indicated; RBC Urine 1-5/HPF (0-5/HPF); WBC Urine 0-1/HPF (0-5/HPF)
[2022-03-02 04:20] LABS: HEMOLYSIS < 15 (0-50)
[2022-03-02 04:25] LABS: Alanine Aminotransferase 37 IU/L (<50); Albumin 4.5 g/dL (3.5-5.0); Albumin Globulin Ratio 1.7 (1.0-2.8); Alkaline Phosphatase 91 U/L (38-126); Aspartate Aminotransferase 23 IU/L (17-59); BUN Creatinine Ratio 16.4 (6-22); Blood Urea Nitrogen 12 mg/dL (9-20); Calcium 8.8 mg/dL (8.4-10.2); Carbon Dioxide 29 mmol/L (22-32); Chloride 104 mmol/L (98-107); Cholesterol 138 mg/dL (140-199); Estimated Glomerular Filt Rate > 60 mL/min (>60); Globulin 2.6 g/dL (1.7-4.1); Glucose 94 mg/dL (70-100); HDL Cholesterol 24 mg/dL (40-60); LDL Cholesterol Calculated 92 mg/dL (<100); Potassium 4.4 mmol/L (3.4-5.1); Sodium 143 mmol/L (137-145); Total Protein 7.1 g/dL (6.3-8.2); Triglycerides 109 mg/dL (35-150)
[2022-03-03 15:17] LABS: Hemoglobin A1C% w Est Avg Glu 5.6 % (4.0-6.0)
[2022-03-03 15:33] LABS: High Sensitivity CRP - Cardiac 6.5 mg/L (1.0-3.0)
== END ==
PROVIDERS: PCP Pediatrics; Referring Provider Pediatrics; Visit Provider Pediatrics
DX: Z00.00 Encounter for general adult medical examination without abnormal findings (principal); E66.9 Obesity, unspecified
CPT/HCPCS: 36415; 80053; 80061; 81003; 81015; 83036; 85025; 86140

== ENCOUNTER 2022-04-16 20:21 | Emergency (ER) | payer OTHER, MEDICAID, SELFPAY ==
[2022-04-16 20:36] VITALS: BP 141/82; PULSE 109; RESP 16; TEMP 37.2; O2SAT 96; BMI 30.3
--- NOTE | 2022-04-16 20:41 | ED.FALL ---
HPI - Fall General Chief Complaint: Fall Stated Complaint: rt foot possibly hit head, s/p fall Time Seen by Provider: 04/16/22 20:39 History of Present Illness HPI Narrative: 32-year-old male nonsmoker presents with family in the chief complaint of a right ankle injury suffered prior to arrival. He states he was walking and stepped on an uneven surface and inverted his ankle and thinks he felt a pop. He denies any knee or hip injury. He denies any numbness, tingling or weakness. He states that it is significantly worse when he puts weight on it or presses on it. He has a boot orthosis from a prior left ankle injury and came in wearing this and using his own crutches. Related Data Previous Rx's Medication Instructions Recorded ibuprofen 800 mg tablet 800 mg PO Q6HP PRN #60 tabs 03/07/17 ciprofloxacin HCl 500 mg tablet 500 mg PO BID #14 tabs 05/04/18 azithromycin 250 mg tablet See Rx Instructions PO .COMPLEX #6 06/26/21 tabs albuterol sulfate 90 mcg/actuation 2 puff inhalation Q4-6H PRN asthma 03/01/22 aerosol inhaler (Ventolin HFA) #1 ea benzonatate 100 mg capsule 100 mg PO TID PRN cough #30 caps 03/01/22 Allergies Allergy/AdvReac Type Severity Reaction Status Date / Time No Known Drug Allergies Allergy Verified 10/24/18 15:37 Review of Systems Review of Systems Narrative: GENERAL: Denies chills, fatigue, malaise, fever, sweats. HEENT: Denies sinus pain, ear pain, sore throat, difficulty swallowing, dizziness. RESPIRATORY: Denies dyspnea, cough, wheezing, hemoptysis, sputum. CARDIOVASCULAR: Denies chest pain, palpitations, orthopnea, edema, GASTROINTESTINAL: Denies nausea, vomiting, abdominal pain, diarrhea, constipation, melena. : Denies dysuria, frequency, incontinence, hematuria, urinary retention. MUSCULOSKELETAL: See HPI SKIN: Denies rash, skin lesions, or other NEUROLOGIC: Denies weakness, headache, numbness, change in speech, confusion, seizures, incoordination. PSYCHIATRIC: No concerning psychosocial issues. 12 point review of systems is negative except for those stated above Patient History Medical History Annual physical exam Elevated high sensitivity C-reactive protein Obesity Overweight (BMI 25.0-29.9) Social History Smoking Status: Never smoker Smoking Status: Never smoker alcohol intake frequency: holidays/special occasions only Substance Use Type: marijuana Exam Narrative Exam Narrative: GENERAL: [32] year old patient appears stated age. Well-developed patient, in mild distress. HEAD: Atraumatic. Normocephalic. EYES: Pupils equal round and reactive. Extraocular motions intact. No scleral icterus. No injection or drainage. ENT: Nose without bleeding, purulent drainage. Throat without erythema, tonsillar hypertrophy or exudate. Airway patent. NECK: Trachea midline. Non tender CARDIOVASCULAR: Regular rate and rhythm without murmurs, gallops, or rubs. RESPIRATORY: Clear to auscultation. Breath sounds equal bilaterally. No wheezes, rales, or rhonchi. GASTROINTESTINAL: Abdomen soft, non-tender, nondistended. EXTREMITIES: Full but painful range of motion of right ankle with swelling overlying the lateral malleolus. Neurovascularly intact distal to the injury, no pain squeeze test, nor at proximal fibula, no ligamentous laxity BACK: Nontender without deformity or crepitance. No flank tenderness. NEURO: AOx3. SKIN: No rash or erythema of visible areas Initial Vital Signs Initial Vital Signs: Vital Signs Temperature 99.0 F 04/16/22 20:36 Pulse Rate 109 H 04/16/22 20:36 Respiratory Rate 16 04/16/22 20:36 Blood Pressure 141/82 H 04/16/22 20:36 Pulse Oximetry 96 04/16/22 20:36 Oxygen Delivery Method 04/16/22 20:36 Course Orders Ordered: ED Orders 04/16/22 20:43 XR ankle RT min 3V Stat XR tibia fibula RT 2V Stat Vital Signs Vital signs: Vital Signs - 8 hr 04/16/22 20:36 04/16/22 21:59 Temperature 99.0 F Pulse Rate 109 H 91 H Respiratory Rate 16 20 Blood Pressure 141/82 H 131/74 Pulse Oximetry 96 100 Oxygen Delivery Method Room Air Room Air MDM - Fall Imaging Data Extremity x-ray #1: Radiologist's Impression: Ab Johnson??32??M??1990 ? Allergy/Adv: No Known Drug Allergies Close Tibia/Fibula X-Ray (Signed) BrooksGeorge pardoel - 04/16/22 Ankle X-Ray (Signed) BrooksGeorge pardoel - 04/16/22 Ankle X-Ray (Signed) De La Rosa,Patti - 01/12/22 Tibia/Fibula X-Ray (Signed) Olivier Minor - 09/09/21 Knee X-Ray (Signed) Sánchez Esparza - 09/09/21 Chest X-Ray (Signed) Patti De La Rosa - 06/26/21 Foot X-Ray (Signed) Andres Garcia - 05/04/18 Launch?Image [address] [address] XRay Report Signed Patient: Ab Johnson MR#: [id number] : 1990 Acct:[id number] Age/Sex: 32 / M Date of Service: 04/16/22 Loc: ED Accession Number: [id number] ?? Procedure: XR ankle RT min 3V Ordering Provider: Yobany Carbajal D.O. PROCEDURE:? XR ANKLE RT MIN 3V ? INDICATIONS:? fall, swelling ? TECHNIQUE:? 3 views of the ankle were acquired.? ? COMPARISON:? [facility], CR, XR ANKLE LT MIN 3V, 01/12/2022, 19:40. ? FINDINGS:? ? Bones:? No fractures or dislocations.? Ankle mortise is normally aligned.? No suspicious bony lesions.? ? Soft tissues:? No tibiotalar joint effusion.? Achilles tendon appears normal.? ? ? IMPRESSION:? ? 1. No fracture or dislocation. ? Dictated by: Gino Brooks M.D. on 04/16/2022 at 21:21 ? ? Approved by: Gino Brooks M.D. on 04/16/2022 at 21:22 ? Extremity x-ray #2: Radiologist's Impression: [address] [address] XRay Report Signed Patient: Ab Johnson MR#: [id number] : 1990 Acct:[id number] Age/Sex: 32 / M Date of Service: 04/16/22 Loc: ED Accession Number: [id number] ?? Procedure: XR tibia fibula RT 2V Ordering Provider: Yobany Carbajal D.O. PROCEDURE:? XR TIBIA FUBULA RT 2V ? INDICATIONS:? fall, swelling ? TECHNIQUE:? 2 views of the tibia and fibula were acquired.? ? COMPARISON:? [facility], CR, XR TIBIA FIBULA RT 2V, 09/09/2021, 14:22. ? FINDINGS:? ? Bones:? No fractures or dislocations.? No suspicious bony lesions.? ? Soft tissues:? No suspicious soft tissue calcifications or masses.? ? IMPRESSION:? ? 1. No fracture or dislocation.? ? ? Dictated by: Gino Brooks M.D. on 04/16/2022 at 21:22 ? ? Approved by: Gino Brooks M.D. on 04/16/2022 at 21:22 ? Discharge Plan Departure Patient Disposition: Home Clinical Impression: Right ankle sprain Instructions: DI for Ankle Sprain Activity Restrictions/Additional Instructions: *You have been diagnosed with [right ankle sprain. As we discussed your physical exam and history are reassuring and x-rays obtained this evening showed no evidence of fracture or dislocation *What to do: *Please continue to take your regular medications as directed. *Please use your boot orthosis and crutches as instructed, no weight-bearing until follow-up *Please follow up with your primary care provider in 2-3 days, call for an appointment. Let them know you were seen in the Emergency Department and that we ask that you be seen in follow up. We will electronically transmit a record of today's note if your PCP is in our system *If you do not have a primary care provider please contact the [facility] Resource line at [phone]. They will ask some questions about your medical history and help get you set up with a doctor in the community. * additionally, as we discussed I have given you the contact information for the on-call orthopedist stephanie who would be another appropriate person to follow-up with *Return to Emergency Department if you should have any new, worsening or concerning symptoms, such as [fever greater than 101 F, shaking chills, worsening pain, persistent vomiting or other bothersome symptoms] Prescriptions: No Action ibuprofen 800 MG tablet 800 mg PO Q6HP PRNQty: 60 0RF benzonatate 100 mg capsule 100 mg PO TID PRN (Reason: cough) Qty: 30 0RF albuterol sulfate [Ventolin HFA] 90 mcg/actuation HFA aerosol inhaler 2 puff inhalation Q4-6H PRN (Reason: asthma) Qty: 1 3RF azithromycin 250 mg tablet See Rx Instructions .ROUTE .COMPLEX Qty: 6 0RF Rx Instructions: take 500 mg today (day 1), then 250 mg for 4 days (days 2-5) ciprofloxacin HCl 500 mg tablet 500 mg PO BID Qty: 14 0RF Referrals: Sharmila Larsen MD [Physician] - Edson Tian MD [Primary Care Provider] - Visit Report Forms: Patient Portal/API
--- NOTE | 2022-04-16 20:43 | DI.RAD.S_ITS ---
PROCEDURE: XR ANKLE RT MIN 3V INDICATIONS: fall, swelling TECHNIQUE: 3 views of the ankle were acquired. COMPARISON: [facility], CR, XR ANKLE LT MIN 3V, 01/12/2022, 19:40. FINDINGS: Bones: No fractures or dislocations. Ankle mortise is normally aligned. No suspicious bony lesions. Soft tissues: No tibiotalar joint effusion. Achilles tendon appears normal. IMPRESSION: 1. No fracture or dislocation. Dictated by: Gino Brooks M.D. on 04/16/2022 at 21:21 Approved by: Gino Brooks M.D. on 04/16/2022 at 21:22
--- NOTE | 2022-04-16 20:43 | DI.RAD.S_ITS ---
PROCEDURE: XR TIBIA FUBULA RT 2V INDICATIONS: fall, swelling TECHNIQUE: 2 views of the tibia and fibula were acquired. COMPARISON: [facility], CR, XR TIBIA FIBULA RT 2V, 09/09/2021, 14:22. FINDINGS: Bones: No fractures or dislocations. No suspicious bony lesions. Soft tissues: No suspicious soft tissue calcifications or masses. IMPRESSION: 1. No fracture or dislocation. Dictated by: Gino Brooks M.D. on 04/16/2022 at 21:22 Approved by: Gino Brooks M.D. on 04/16/2022 at 21:22
[2022-04-16 21:59] VITALS: BP 131/74; PULSE 91; RESP 20; O2SAT 100
== END 2022-04-16 22:00 | disposition home or self-care (01) ==
PROVIDERS: Emergency Provider Emergency Medicine; PCP Pediatrics
DX: S93.401A Sprain of unspecified ligament of right ankle, initial encounter (principal); X50.1XXA Overexertion from prolonged static or awkward postures, initial encounter
CPT/HCPCS: 73590; 73610; 99283

== ENCOUNTER → 2022-05-15 14:49 | Outpatient (CLI) | payer OTHER, MEDICAID, SELFPAY ==
--- NOTE | 2022-05-15 14:53 | DI.MRI.S_ITS ---
PROCEDURE: MR ANKLE RT WO CON INDICATIONS: Sprain of unspecified ligament of right ankle TECHNIQUE: Noncontrast sagittal T1 spin echo and T2 fast spin echo with fat saturation, axial proton density fast spin echo and T2 fast spin echo with fat saturation, coronal T1 spin echo and T2 fast spin echo with fat saturation through the ankle/hindfoot. COMPARISON: None. FINDINGS: Image quality: Excellent. Bones and joints: Nondisplaced fracture is noted involving posterior aspect of distal tibia extending to posterior tibial plafond with extensive adjacent marrow edema. Edema is also noted involving anterior aspect of distal tibia and superior aspect of distal talus without discrete fracture line. There is small to moderate amount of joint effusion, no gross loose bodies. Tiny subcortical T2 hyperintense signal involving mid to lateral portion of talar dome weight-bearing portion concerning for early development of tiny osteochondral injuries. Medial structures: The posterior tibialis, flexor digitorum longus, and flexor hallucis longus tendons are intact. Small amount of fluid distending flexor tendon sheath is seen at the level of distal talus/talonavicular joint. The posterior tibial neurovascular bundle appears normal within the tarsal tunnel, without extrinsic mass effect. The deep layer (anterior and posterior tibiotalar ligaments) and superficial layer (tibionavicular, tibiospring, and tibiocalcaneal ligaments) of the deltoid ligament appear normal. The spring ligament components (superomedial calcaneonavicular, medioplantar oblique calcaneonavicular, and inferoplantar longitudinal ligaments) are intact. Lateral structures: The anterior talofibular ligament is markedly attenuated suggestive of moderate to high-grade partial-thickness tear. The calcaneofibular, and posterior talofibular ligaments appear intact. More superiorly, the anterior and posterior tibiofibular ligaments appear intact, as is the intermalleolar ligament. The tibiofibular syndesmosis is normal in width at 2 mm or less. The peroneus longus and brevis tendons demonstrate normal location and morphology. Adjacent bony peroneal tubercle and retrotrochlear prominence are normal in size. The sinus tarsi demonstrates normal fatty signal, without edema, fibrosis, or cyst formation. Visualized sinus tarsi components (cervical ligament, interosseous talocalcaneal ligament, roots of the inferior extensor retinaculum) appear normal. The calcaneonavicular and calcaneocuboid components of the bifurcate ligament appear intact. The dorsal calcaneocuboid ligament appears intact. Anterior structures: The tibialis anterior, extensor hallucis longus, and extensor digitorum longus tendons appear intact. The dorsal talonavicular ligament appears intact. Posterior and plantar structures: Achilles tendon is intact. Medial and lateral bands of the plantar fascia are of normal thickness. No abductor digiti quinti muscle atrophy to suggest Brown neuropathy. IMPRESSION: 1. Nondisplaced posterior malleolus fracture as above. Bony contusion also seen involving anterior aspect of distal tibia and superior aspect of distal talus without discrete fracture line. Small to moderate joint effusion, no gross loose bodies. 2. Subtle signal abnormality involving mid to lateral aspect of talar dome weight-bearing portion concerning for early developing osteochondral injuries. 3. Low-grade tenosynovitis involving flexor tendons. Rest of the ankle tendons are grossly intact. 4. Suggestion of moderate to high-grade partial-thickness tear involving anterior talofibular ligament. Dictated by: Justen Joseph M.D. on 05/15/2022 at 17:19 Approved by: Justen Joseph M.D. on 05/15/2022 at 17:24
[2022-05-15 16:17] LABS: Estimated Glomerular Filt Rate > 60 mL/min (>60)
[2022-05-15 18:19] LABS: Erythrocyte Sedimentation Rate 3 MM/HR (0-15)
== END ==
PROVIDERS: PCP Pediatrics; Referring Provider Internal Medicine Cardiovascular Disease; Visit Provider Internal Medicine Cardiovascular Disease
DX: S82.891A Other fracture of right lower leg, initial encounter for closed fracture (principal); S93.401A Sprain of unspecified ligament of right ankle, initial encounter; R79.82 Elevated C-reactive protein (CRP); R05.9 Cough, unspecified; M65.871 Other synovitis and tenosynovitis, right ankle and foot
CPT/HCPCS: 36415; 73721; 82565; 85651

== ENCOUNTER 2022-07-02 19:20 | Emergency (ER) | payer OTHER, MEDICAID, SELFPAY ==
[2022-07-02 20:06] VITALS: BP 140/98; PULSE 118; RESP 20; TEMP 37; O2SAT 96
[2022-07-02 22:12] LABS: Adenovirus Not Detected (Not Detect); B. parapertussis Not Detected (Not Detecte); Bordetella pertussis Not Detected (Not Detecte); Chlamydophila pneumoniae Not Detected (Not Detect); Coronavirus 229E Not Detected (Not Detect); Coronavirus HKU1 Not Detected (Not Detect); Coronavirus NL 63 Not Detected (Not Detect); Coronavirus OC43 Not Detected (Not Detect); Human Metapneumovirus Not Detected (Not Detect); Human Rhinovirus/Enterovirus Not Detected (Not Detect); Influenza A Not Detected (Not Detect); Influenza B Not Detected (Not Detect); Mycoplasma pneumoniae Not Detected (Not Detect); Parainfluenza Virus 1 Not Detected (Not Detect); Parainfluenza Virus 2 Not Detected (Not Detect); Parainfluenza Virus 3 Not Detected (Not Detect); Parainfluenza Virus 4 Not Detected (Not Detect); Respiratory Syncytial Virus Not Detected (Not Detect)
[2022-07-02 22:13] LABS: SARS- CoV-2 Detected (Not Detecte)
--- NOTE | 2022-07-03 00:54 | ED_ITS ---
HPI - URI/Sore Throat General Chief Complaint: Upper Respiratory Symptoms Stated Complaint: NOT FEELING WELL, FEVER Time Seen by Provider: 07/03/22 00:50 Source: patient Mode of arrival: Ambulatory History of Present Illness HPI Narrative: 32-year-old male nonsmoker presents with family in the chief complaint of typical upper respiratory symptoms including runny nose, nasal congestion, sneezing, sore throat and cough for the past week or so. He denies any profound shortness of breath. He denies nausea, vomiting or diarrhea. He denies much in the way of body aches. He denies known exposure to persons with COVID. Related Data Previous Rx's Medication Instructions Recorded ibuprofen 800 mg tablet 800 mg PO Q6HP PRN #60 tabs 03/07/17 ciprofloxacin HCl 500 mg tablet 500 mg PO BID #14 tabs 05/04/18 azithromycin 250 mg tablet See Rx Instructions PO .COMPLEX #6 06/26/21 tabs albuterol sulfate 90 mcg/actuation 2 puff inhalation Q4-6H PRN asthma 03/01/22 aerosol inhaler (Ventolin HFA) #1 ea benzonatate 100 mg capsule 100 mg PO TID PRN cough #30 caps 03/01/22 hydrocodone 5 mg-acetaminophen 325 1 tab PO Q8H PRN severe pain #30 04/25/22 mg tablet tabs promethazine 6.25 mg-codeine 10 5 ml PO Q4-6H PRN cough #473 mL 07/03/22 mg/5 mL syrup Allergies Allergy/AdvReac Type Severity Reaction Status Date / Time No Known Drug Allergies Allergy Verified 10/24/18 15:37 Review of Systems Review of Systems Narrative: GENERAL: See HPI HEENT: See HPI RESPIRATORY: See HPI CARDIOVASCULAR: Denies chest pain, palpitations, orthopnea, edema, GASTROINTESTINAL: Denies nausea, vomiting, abdominal pain, diarrhea, constipa tion, melena. : Denies dysuria, frequency, incontinence, hematuria, urinary retention. MUSCULOSKELETAL: denies weakness, joint pain, or bony pain SKIN: Denies rash, skin lesions, or other NEUROLOGIC: Denies weakness, headache, numbness, change in speech, confusion, seizures, incoordination. PSYCHIATRIC: No concerning psychosocial issues. 12 point review of systems is negative except for those stated above Patient History Medical History Annual physical exam Elevated high sensitivity C-reactive protein Obesity Overweight (BMI 25.0-29.9) Social History Smoking Status: Never smoker Smoking Status: Never smoker alcohol intake frequency: holidays/special occasions only Substance Use Type: marijuana Exam Narrative Exam Narrative: GENERAL: [32] year old patient appears stated age. Well-developed patient, in mild distress. HEAD: Atraumatic. Normocephalic. EYES: Pupils equal round and reactive. Extraocular motions intact. No scleral icterus. No injection or drainage. ENT: Clear nasal drainage bilaterally. Throat without erythema, tonsillar hypertrophy or exudate. Airway patent. NECK: Trachea midline. Non tender CARDIOVASCULAR: Regular rate and rhythm without murmurs, gallops, or rubs. RESPIRATORY: Clear to auscultation. Breath sounds equal bilaterally. No wheezes, rales, or rhonchi. No increased work of breathing such as tachypnea, use of accessory muscles or hypoxemia GASTROINTESTINAL: Abdomen soft, non-tender, nondistended. EXTREMITIES: No edema or joint tenderness. BACK: Nontender without deformity or crepitance. No flank tenderness. NEURO: AOx3. SKIN: No rash or erythema of visible areas Initial Vital Signs Initial Vital Signs: Vital Signs Temperature 98.6 F 07/02/22 20:06 Pulse Rate 118 H 07/02/22 20:06 Respiratory Rate 20 07/02/22 20:06 Blood Pressure 140/98 H 07/02/22 20:06 Pulse Oximetry 96 07/02/22 20:06 Oxygen Delivery Method 07/02/22 20:06 Course Orders Ordered: ED Orders 07/02/22 20:10 Respiratory Panel (Film Array) Stat Vital Signs Vital signs: Vital Signs - 8 hr 07/02/22 20:06 07/03/22 01:14 Temperature 98.6 F 99.7 F H Pulse Rate 118 H 112 H Respiratory Rate 20 18 Blood Pressure 140/98 H 114/70 Pulse Oximetry 96 97 Oxygen Delivery Method Room Air Room Air MDM - URI/Sore Throat Lab Data Labs: Lab Results 07/02/22 Range/Units 20:10 Chlamy pneumoniae PCR Not detected (Not Detect) Adenovirus (PCR) Not detected (Not Detect) B. pertussis DNA (PCR) Not detected (Not Detecte) B.parapertussis DNA PCR Not detected (Not Detecte) Coronavirus OC43 (PCR) Not detected (Not Detect) Coronavirus HKU1 (PCR) Not detected (Not Detect) Coronavirus 229E (PCR) Not detected (Not Detect) SARS-CoV-2 (PCR) Detected H (Not Detecte) Coronavirus NL63 (PCR) Not detected (Not Detect) Human Metapneumovir PCR Not detected (Not Detect) Influenza Type A (PCR) Not detected (Not Detect) Influenza Type B (PCR) Not detected (Not Detect) M. pneumoniae (PCR) Not detected (Not Detect) Parainfluenza 1 (PCR) Not detected (Not Detect) Parainfluenza 2 (PCR) Not detected (Not Detect) Parainfluenza 3 (PCR) Not detected (Not Detect) Parainfluenza 4 (PCR) Not detected (Not Detect) RSV (PCR) Not detected (Not Detect) Entero/Rhino (PCR) Not detected (Not Detect) MDM Narrative Medical decision making narrative: Patient with a week's worth of mild upper respiratory symptoms and no significant work of breathing or GI complaints has COVID noted on respiratory panel. No indication for more significant workup, no indications for hospitalization such as hypoxemia or increased work of breathing. Patient given return precautions and questions answered to his apparent satisfaction Discharge Plan Departure Patient Disposition: Home Clinical Impression: COVID-19 Instructions: COVID-19 Activity Restrictions/Additional Instructions: *You have been diagnosed with [ COVID-19] *What to do: ?* per recommendations from the CDC and the [facility] Department of Health ?* stay home except to get medical care. ?Restrict activities outside your home, except for getting medical care. ?Do not go to work, school, or public areas. ?Avoid using public transportation, ride sharing, or taxis. ?* separate yourself from other people in your home. ?* call ahead before visiting your doctor ?* Wear a facemask ?* Cover your coughs and sneezes ?* Clean your hands often ?* Avoid sharing household items ?* Clean all high-touch services every day ?* Monitor your symptoms and seek prompt medical attention if your illness is worsening, particularly with difficulty in breathing. You may discontinue your isolation when: ?1. You have been fever-free for at least 24 hours without the use of fever reducing medication, AND ?2. Your symptoms are getting better, AND ?3. At least 5 days have passed since symptoms first appeared ?4. If you have fever, continue to stay home until fever resolves Individuals with laboratory confirmed COVID-19 who have not had any symptoms may discontinue home isolation when at least 5 days have passed since the date of their first COVID-19 diagnostic test and have had no subsequent illness You should notifiy any friends and family that have been in close contact *If up to date on COVID Vaccines, then they do not need to quarantine unless symptoms develop. Get tested on day 5 (or sooner if symptoms develop). Take precautions and watch for symptoms until day 10 *If NOT up to date on COVID Vaccines, then CDC recommends quarantine for at least 5 full days. Wear a well fitted mask at home if you must be around others. If they ?develop symptoms they should get tested. If they remain asymptomatic they should get tested on day 5. They should take precautions and monitor for symptoms until day 10. Prescriptions: New promethazine-codeine 6.25-10 mg/5 mL syrup 5 ml PO Q4-6H PRN (Reason: cough) Qty: 473 0RF No Action ibuprofen 800 MG tablet 800 mg PO Q6HP PRNQty: 60 0RF benzonatate 100 mg capsule 100 mg PO TID PRN (Reason: cough) Qty: 30 0RF albuterol sulfate [Ventolin HFA] 90 mcg/actuation HFA aerosol inhaler 2 puff inhalation Q4-6H PRN (Reason: asthma) Qty: 1 3RF hydrocodone-acetaminophen 5-325 mg tablet 1 tab PO Q8H PRN (Reason: severe pain) Qty: 30 0RF azithromycin 250 mg tablet See Rx Instructions .ROUTE .COMPLEX Qty: 6 0RF Rx Instructions: take 500 mg today (day 1), then 250 mg for 4 days (days 2-5) ciprofloxacin HCl 500 mg tablet 500 mg PO BID Qty: 14 0RF Referrals: Edson Tian MD [Primary Care Provider] - Visit Report Forms: Patient Portal/API
[2022-07-03 01:14] VITALS: BP 114/70; PULSE 112; RESP 18; TEMP 37.6; O2SAT 97
== END 2022-07-03 02:00 | disposition home or self-care (01) ==
PROVIDERS: Emergency Provider Emergency Medicine; PCP Pediatrics
DX: U07.1 COVID-19 (principal)
CPT/HCPCS: 87633; 99281; 99282

== ENCOUNTER 2022-07-30 10:27 | Emergency (ER) | payer OTHER, MEDICAID, SELFPAY ==
[2022-07-30 11:16] VITALS: BP 129/90; PULSE 104; RESP 18; TEMP 35.9; O2SAT 97; BMI 31.6
--- NOTE | 2022-07-30 11:19 | DI.RAD.S_ITS ---
PROCEDURE: XR CHEST 2V INDICATIONS: cough/bronchospasm, covid+ 3 weeks ago TECHNIQUE: 2 views of the chest were acquired. COMPARISON: [facility], CR, XR CHEST 2V, 06/26/2021, 19:52. FINDINGS: New from prior study, 1.6 centimeter nodular opacity projecting over the left suprahilar lung. Lungs otherwise clear. No pleural effusion or pneumothorax. Normal heart size. IMPRESSION: New left suprahilar nodule. CT chest recommended. No acute process otherwise. Dictated by: Jean-Paul Lafleur M.D. on 07/30/2022 at 12:12 Approved by: Jean-Paul Lafleur M.D. on 07/30/2022 at 12:13
[2022-07-30 14:40] VITALS: BP 139/84; PULSE 128; O2SAT 96
[2022-07-30] MEDS: ACETAMINOPHEN 325 MG TABLET 975 MG PO (14:51)
[2022-07-30] MEDS: IBUPROFEN 400 MG TABLET 800 MG PO (14:51)
--- NOTE | 2022-07-30 15:09 | ED_ITS ---
HPI - SOB/Dyspnea General Chief Complaint: Upper Respiratory Symptoms Stated Complaint: coughing till vomiting, headache, t-7 Time Seen by Provider: 07/30/22 15:08 Source: patient Mode of arrival: Ambulatory Limitations: no limitations History of Present Illness HPI Narrative: 32-year-old male with no known medical issues approximately 1 month post COVID with persistent cough and post-tussive emesis. Patient states he sometimes coughs up out but does not see it. Patient denies fevers he thinks he might have had chills. He denies chest pain or pressure, no shortness of breath. He states that he is had Tessalon Perles which were minimally helpful, albuterol what seems to make his cough worse. Patient does not have any nausea or vomiting if he is not coughing. He denies diarrhea constipation, no swelling of his extremities. No dysuria urgency or frequency. He denies other daily medication issues. Denies any major surgeries. No tobacco, alcohol once every 3 years, occasional edible marijuana but no vaping or other inhalants. No IV drug use. Patient states symptoms onset were around July 02. Related Data Previous Rx's Medication Instructions Recorded ibuprofen 800 mg tablet 800 mg PO Q6HP PRN #60 tabs 03/07/17 ciprofloxacin HCl 500 mg tablet 500 mg PO BID #14 tabs 05/04/18 azithromycin 250 mg tablet See Rx Instructions PO .COMPLEX #6 06/26/21 tabs albuterol sulfate 90 mcg/actuation 2 puff inhalation Q4-6H PRN asthma 03/01/22 aerosol inhaler (Ventolin HFA) #1 ea benzonatate 100 mg capsule 100 mg PO TID PRN cough #30 caps 03/01/22 hydrocodone 5 mg-acetaminophen 325 1 tab PO Q8H PRN severe pain #30 04/25/22 mg tablet tabs promethazine 6.25 mg-codeine 10 5 ml PO Q4-6H PRN cough #473 mL 07/03/22 mg/5 mL syrup codeine 10 mg-guaifenesin 200 mg/5 10 ml PO Q6H PRN cough #150 mL 07/30/22 mL oral liquid Allergies Allergy/AdvReac Type Severity Reaction Status Date / Time No Known Drug Allergies Allergy Verified 10/24/18 15:37 Review of Systems Review of Systems ROS Unobtainable: All systems reviewed & are unremarkable except as noted in HPI and below Patient History Medical History Annual physical exam Elevated high sensitivity C-reactive protein Obesity Overweight (BMI 25.0-29.9) Social History Smoking Status: Never smoker Smoking Status: Never smoker alcohol intake frequency: holidays/special occasions only Substance Use Type: marijuana Exam Narrative Exam Narrative: GENERAL: Alert and oriented x three, male in mild distress. HEENT: Head normocephalic, atraumatic, EOMI, pupils reactive, face symmetric, moist mucous membranes NECK: Supple, full range of motion CARDIOVASCULAR: Regular rate and rhythm without murmurs, rubs or gallops. RESPIRATORY: Breath sounds equal bilaterally, no wheezes rales or rhonchi. No tachypnea or accessory muscle use. Patient has frequent dry hacking cough that seems to be worsened when he speaks. ABDOMEN: Soft, nontender. Normoactive bowel sounds all 4 quadrants. No guarding or rebound, rigidity, no mass : No CVA tenderness EXTREMITIES: Normal range of motion, no clubbing or edema. Neurovascularly intact NEUROLOGICAL: Cranial nerves II through XII grossly intact. Moving all extremities SKIN: Warm, dry, no petechiae, no rashes or lesions. Initial Vital Signs Initial Vital Signs: Vital Signs Temperature 96.7 F L 07/30/22 11:16 Pulse Rate 104 H 07/30/22 11:16 Respiratory Rate 18 07/30/22 11:16 Blood Pressure 129/90 07/30/22 11:16 Pulse Oximetry 97 07/30/22 11:16 Oxygen Delivery Method 07/30/22 11:16 Course Orders Ordered: ED Orders 07/30/22 11:19 XR chest 2V Stat 07/30/22 15:24 CT chest w con Stat EKG-12 Lead Stat 07/30/22 15:35 BNP [NT-proBNP (BNP-Adult 18+)] Stat CBC Auto Diff [Complete Blood Count AUTO DIFF] Stat CMP [Comprehensive Metabolic Panel] Stat Covid-19 + FLU A/B + RSV - PCR Stat Lipase Stat Troponin & CK Cardiac Panel Stat Discontinued Medications Acetaminophen (Acetaminophen 325 Mg Tablet) 975 mg PO NOW ONE Stop: 07/30/22 14:48 Last Admin: 07/30/22 14:51 Dose: 975 mg Documented By: DORIAN Guaifenesin/Codeine Phosphate (Codeine/Guaifenesin Liquid 5ml Udc) 10 ml PO NOW ONE Stop: 07/30/22 15:25 Last Admin: 07/30/22 15:41 Dose: 10 ml Documented By: DORIAN Ibuprofen (Ibuprofen 400 Mg Tablet) 800 mg PO NOW ONE Stop: 07/30/22 14:48 Last Admin: 07/30/22 14:51 Dose: 800 mg Documented By: NADIRK Vital Signs Vital signs: Vital Signs - 8 hr 07/30/22 14:40 07/30/22 17:18 Pulse Rate 128 H 124 H Respiratory Rate 20 Blood Pressure 139/84 140/84 Pulse Oximetry 96 98 Oxygen Delivery Method Room Air Room Air MDM - SOB/Dyspnea Lab Data Result diagrams: 07/30/22 15:35 07/30/22 15:35 Labs: Lab Results 07/30/22 07/30/22 07/30/22 Range/Units 15:35 15:35 15:35 WBC 10.7 (4.5-11.0) X10^3/uL RBC 5.17 (4.5-5.9) X10^6/uL Hgb 14.9 (13.5-17.5) g/dL Hct 43.9 (41-53) % MCV 84.9 (80-100) fL MCH 28.9 (26-34) PG MCHC 34.0 (30-36) % RDW 13.8 (11.6-14.8) % Plt Count 251 (150-400) X10^3/uL Neut % (Auto) 85.6 H (50-75) % Lymph % (Auto) 2.9 L (25-40) % [place] % (Auto) 10.6 (3-14) % Eos % (Auto) 0.3 L (2-4) % Baso % (Auto) 0.6 (0-2) % Neut # (Auto) 9200 H (5147-1481) /uL Lymph # (Auto) 300 L (9983-5382) /uL [place] # (Auto) 1100 H (0-900) /uL Eos # (Auto) 0 (0-450) /uL Baso # (Auto) 100 (0-100) /uL Sodium 136 L (137-145) mmol/L Potassium 4.4 (3.4-5.1) mmol/L Chloride 99 (98-107) mmol/L Carbon Dioxide 26 (22-32) mmol/L BUN 9 (9-20) mg/dL Creatinine 0.75 (0.66-1.25) mg/dL Estimated GFR > 60 (>60) mL/min BUN/Creatinine Ratio 12.0 (6-22) Glucose 97 (70-100) mg/dL Calcium 9.0 (8.4-10.2) mg/dL Total Bilirubin 1.5 H (0.2-1.3) mg/dL AST 27 (17-59) IU/L ALT 53 H (<50) IU/L Alkaline Phosphatase 124 (38-126) U/L Total Creatine Kinase 63 (55-170) U/L CK-MB (CK-2) TNP CK-MB (CK-2) Rel Index TNP Troponin I < 0.012 (0.01-0.034) ng/mL NT-Pro-B Natriuret Pep 26 (<125) pg/mL Total Protein 7.9 (6.3-8.2) g/dL Albumin 4.6 (3.5-5.0) g/dL Globulin 3.3 (1.7-4.1) g/dL Albumin/Globulin Ratio 1.4 (1.0-2.8) Lipase 56 (23-300) U/L SARS-CoV-2 (PCR) (Negative) Influenza A (RT-PCR) (NEGATIVE) Influenza B (RT-PCR) (NEGATIVE) RSV (PCR) (Negative) 07/30/22 Range/Units 15:35 WBC (4.5-11.0) X10^3/uL RBC (4.5-5.9) X10^6/uL Hgb (13.5-17.5) g/dL Hct (41-53) % MCV (80-100) fL MCH (26-34) PG MCHC (30-36) % RDW (11.6-14.8) % Plt Count (150-400) X10^3/uL Neut % (Auto) (50-75) % Lymph % (Auto) (25-40) % [place] % (Auto) (3-14) % Eos % (Auto) (2-4) % Baso % (Auto) (0-2) % Neut # (Auto) (7380-4143) /uL Lymph # (Auto) (7011-0250) /uL [place] # (Auto) (0-900) /uL Eos # (Auto) (0-450) /uL Baso # (Auto) (0-100) /uL Sodium (137-145) mmol/L Potassium (3.4-5.1) mmol/L Chloride (98-107) mmol/L Carbon Dioxide (22-32) mmol/L BUN (9-20) mg/dL Creatinine (0.66-1.25) mg/dL Estimated GFR (>60) mL/min BUN/Creatinine Ratio (6-22) Glucose (70-100) mg/dL Calcium (8.4-10.2) mg/dL Total Bilirubin (0.2-1.3) mg/dL AST (17-59) IU/L ALT (<50) IU/L Alkaline Phosphatase (38-126) U/L Total Creatine Kinase (55-170) U/L CK-MB (CK-2) CK-MB (CK-2) Rel Index Troponin I (0.01-0.034) ng/mL NT-Pro-B Natriuret Pep (<125) pg/mL Total Protein (6.3-8.2) g/dL Albumin (3.5-5.0) g/dL Globulin (1.7-4.1) g/dL Albumin/Globulin Ratio (1.0-2.8) Lipase (23-300) U/L SARS-CoV-2 (PCR) Negative (Negative) Influenza A (RT-PCR) Flu a positive H (NEGATIVE) Influenza B (RT-PCR) Flu b negative (NEGATIVE) RSV (PCR) Negative (Negative) Imaging Data Chest x-ray: Radiologist's Impression: Close Chest X-Ray (Signed) Jean-Paul Lafleur - 07/30/22 Ankle MRI (Signed) Justen Joseph - 05/15/22 Tibia/Fibula X-Ray (Signed) Gino Brooks - 04/16/22 Ankle X-Ray (Signed) Gino Brooks - 04/16/22 Ankle X-Ray (Signed) Patti De La Rosa - 01/12/22 Tibia/Fibula X-Ray (Signed) Olivier Minor - 09/09/21 Knee X-Ray (Signed) Sánchez Esparza - 09/09/21 Chest X-Ray (Signed) Patti De La Rosa - 06/26/21 Foot X-Ray (Signed) JoseAndres - 05/04/18 Launch?Image [address] [address] XRay Report Signed Patient: Ab Johnson MR#: [id number] : 1990 Acct:[id number] Age/Sex: 32 / M Date of Service: 07/30/22 Loc: ED Accession Number: [id number] ?? Procedure: XR chest 2V Ordering Provider: Gloria Tavarez D.O. PROCEDURE:? XR CHEST 2V ? INDICATIONS:? cough/bronchospasm, covid+ 3 weeks ago ? TECHNIQUE:? 2 views of the chest were acquired.? ? COMPARISON:? [facility], , XR CHEST 2V, 06/26/2021, 19:52. ? FINDINGS:? ? New from prior study, 1.6 centimeter nodular opacity projecting over the left suprahilar lung.? Lungs otherwise clear.? No pleural effusion or pneumothorax.? Normal heart size. ? IMPRESSION:? New left suprahilar nodule.? CT chest recommended.? No acute process otherwise. ? ? Dictated by: Jean-Paul Lafleur M.D. on 07/30/2022 at 12:12 ? ? Approved by: Jean-Paul Lafleur M.D. on 07/30/2022 at 12:13?? MDM Narrative Medical decision making narrative: 32-year-old male with persistent cough and posttussive emesis after having COVID infection on July 02 approximately a month ago. Patient chest x-ray shows a new suprahilar nodule, labs and CT imaging were obtained and show no acute changes to the lungs or structures. Patient is positive for influenza today lab work is otherwise reassuring. Suspect his cough is from his new infection. Patient had mild relief with codeine here in the department. Discharge Plan Departure Patient Disposition: Home Clinical Impression: Influenza A Instructions: DI for Influenza -- Adult Activity Restrictions/Additional Instructions: You have a new infection influenza A This is likely why you are having your persistent cough. Your imaging including a CT of your chest is reassuring and there are no large pulmonary nodules, masses or lung changes. You may take codeine every 6 hours as needed. Prescription sent to [facility] [place]. Please return for worsening chest pain, shortness of breath, persistent vomiting, new swelling of extremities, black or bloody stools or other new or concerning changes. Prescriptions: New codeine-guaifenesin 10-200 mg/5 mL liquid 10 ml PO Q6H PRN (Reason: cough) Qty: 150 0RF No Action ibuprofen 800 MG tablet 800 mg PO Q6HP PRNQty: 60 0RF benzonatate 100 mg capsule 100 mg PO TID PRN (Reason: cough) Qty: 30 0RF albuterol sulfate [Ventolin HFA] 90 mcg/actuation HFA aerosol inhaler 2 puff inhalation Q4-6H PRN (Reason: asthma) Qty: 1 3RF hydrocodone-acetaminophen 5-325 mg tablet 1 tab PO Q8H PRN (Reason: severe pain) Qty: 30 0RF azithromycin 250 mg tablet See Rx Instructions .ROUTE .COMPLEX Qty: 6 0RF Rx Instructions: take 500 mg today (day 1), then 250 mg for 4 days (days 2-5) promethazine-codeine 6.25-10 mg/5 mL syrup 5 ml PO Q4-6H PRN (Reason: cough) Qty: 473 0RF ciprofloxacin HCl 500 mg tablet 500 mg PO BID Qty: 14 0RF Referrals: Edson Tian MD [Primary Care Provider] - Visit Report Forms: Patient Portal/API
--- NOTE | 2022-07-30 15:24 | DI.CT.S_ITS ---
PROCEDURE: CT CHEST W CON INDICATIONS: cough x 1 month, suprahilar node TECHNIQUE: After the administration of intravenous contrast, 5 mm thick sections acquired from the pulmonary apices to the posterior costophrenic angles. 1 mm axial lung, 5 mm thick coronal and sagittal reformats and 7 mm axial MIP were acquired. For radiation dose reduction, the following was used: automated exposure control, adjustment of mA and/or kV according to patient size. COMPARISON: [facility], CR, XR CHEST 2V, 06/26/2021, 19:52. [facility], CR, XR CHEST 2V, 07/30/2022, 11:22. FINDINGS: Image quality: Excellent. Lungs and pleura: No acute air space opacities. No pleural effusions or pneumothorax. Central and peripheral airways are patent and normal in caliber. Small right upper tracheal diverticulum. Mediastinum: Heart size is normal. No pericardial effusion. No mediastinal or hilar adenopathy by size criteria. Thoracic aorta and central pulmonary arteries are normal in size. Esophagus is normal in caliber. No hiatal hernia. Bones and chest wall: No suspicious bony lesions. No vertebral body compression fractures. Mild midthoracic spine degenerative disc changes. No axillary or supraclavicular adenopathy by size criteria. Thyroid gland is normal.. Abdomen: No acute disease process identified in the visualized upper abdomen. IMPRESSION: No acute disease process. No lung consolidation, lung nodules or lung masses. No pleural effusions. No lymphadenopathy based on size criteria. Dictated by: Peri Burciaga MD, PhD on 07/30/2022 at 15:59 Approved by: Peri Burciaga MD, PhD on 07/30/2022 at 16:04
[2022-07-30] MEDS: CODEINE/GUAIFENESIN LIQUID 5ML UDC 10 ML PO (15:41)
[2022-07-30 15:47] LABS: Add Manual Diff / Slide Review NO; Basophils Absolute Auto 100 /uL (0-100); Basophils Percent Auto 0.6 % (0-2); Eosinophils Absolute Auto 0 /uL (0-450); Eosinophils Percent Auto 0.3 % (2-4); Hematocrit 43.9 % (41-53); Hemoglobin 14.9 g/dL (13.5-17.5); Lymphocytes Absolute Auto 300 /uL (1100-4500); Lymphocytes Percent Auto 2.9 % (25-40); Mean Corpuscular Hemoglobin 28.9 PG (26-34); Mean Corpuscular Volume 84.9 fL (80-100); Monocytes Absolute Auto 1100 /uL (0-900); Monocytes Percent Auto 10.6 % (3-14); Neutrophils Absolute Auto 9200 /uL (1500-7000); Neutrophils Percent Auto 85.6 % (50-75); Platelet Count 251 X10^3/uL (150-400); Red Blood Cell Count 5.17 X10^6/uL (4.5-5.9); Red Cell Distribution Width 13.8 % (11.6-14.8); White Blood Cell Count 10.7 X10^3/uL (4.5-11.0)
[2022-07-30 16:06] LABS: Alanine Aminotransferase 53 IU/L (<50); Albumin 4.6 g/dL (3.5-5.0); Albumin Globulin Ratio 1.4 (1.0-2.8); Alkaline Phosphatase 124 U/L (38-126); Aspartate Aminotransferase 27 IU/L (17-59); Bilirubin Total 1.5 mg/dL (0.2-1.3); Blood Urea Nitrogen 9 mg/dL (9-20); Carbon Dioxide 26 mmol/L (22-32); Chloride 99 mmol/L (98-107); Creatine Kinase 63 U/L (55-170); Estimated Glomerular Filt Rate > 60 mL/min (>60); Globulin 3.3 g/dL (1.7-4.1); Glucose 97 mg/dL (70-100); HEMOLYSIS < 15 (0-50); Potassium 4.4 mmol/L (3.4-5.1); Sodium 136 mmol/L (137-145); Total Protein 7.9 g/dL (6.3-8.2)
[2022-07-30 16:07] LABS: Lipase 56 U/L (23-300)
[2022-07-30 16:19] LABS: NT-proBNP (BNP-Adult 18+) 26 pg/mL (<125); Troponin I < 0.012 ng/mL (0.01-0.034)
[2022-07-30 16:25] LABS: Influenza A - CEPHEID Flu A POSITIVE (NEGATIVE); Influenza B - CEPHEID Flu B NEGATIVE (NEGATIVE); Respiratory Syncytial Virus Negative (Negative)
[2022-07-30 16:36] LABS: COVID-19 CEPHEID 4-PLEX PCR Negative (Negative)
[2022-07-30 17:18] VITALS: BP 140/84; PULSE 124; RESP 20; O2SAT 98
== END 2022-07-30 17:18 | disposition home or self-care (01) ==
PROVIDERS: Emergency Provider Emergency Medicine; PCP Pediatrics
DX: J10.1 Influenza due to other identified influenza virus with other respiratory manifestations (principal); Z86.16 Personal history of COVID-19; Z20.822 Contact with and (suspected) exposure to COVID-19
CPT/HCPCS: 0241U; 36415; 71046; 71260; 80053; 82550; 83690; 83880; 84484; 85025; 99283; 99284; Q9967

== ENCOUNTER 2023-12-07 14:01 | Emergency (ER) | payer OTHER, MEDICAID, SELFPAY ==
[2023-12-07 14:06] VITALS: BP 147/80; PULSE 95; RESP 18; TEMP 36.4; O2SAT 96; BMI 31.1
--- NOTE | 2023-12-07 14:36 | ED.BACK ---
HPI - Back Pain/Injury <Jessica Briceno PA-C - Last Filed: 12/07/23 17:48> General Chief Complaint: Back Pain/Injury Stated Complaint: did something to back hurts Time Seen by Provider: 12/07/23 14:36 Source: patient History of Present Illness HPI Narrative: 33-year-old male history KATELYN, obesity presents with concern for left-sided low back pain since this morning. Patient states he was carrying a half full 10 gal aquarium when his [place] dog got in his way unexpectedly and he had to step over his dog. He believes he stepped over with his left leg up and forward and then continued walking carrying the aquarium but about 5 minutes later he realized he was having left-sided back pain. He states it is a aching discomfort that does not radiate into his leg or elsewhere. He says it is very painful and this morning at around 9:30 a.m. about 25 minutes after it happened he took for 200 mg Ibuprofens but has not tried anything else since then except for resting ?curled up in a ball? in bed. Patient also states that he has had chronic dental pain and issues with teeth on his upper back area for about a year saw a dentist in the last month and a half and was told he needed to have oral surgery and put on antibiotics due to dental pain and infection. He says this improved his symptoms but then recently he feels they have returned and he has been having dental pain again it has not been as bad, but concerned that the antibiotics he took a few weeks ago did not fully clear the infection. He denies previous injury to his low back, loss of bowel or bladder function, one-sided weakness, fall, fever, chills, nausea, vomiting or any other symptoms, injuries or concerns. Related Data Previous Rx's Medication Instructions Recorded albuterol sulfate 90 mcg/actuation 2 puff inhalation Q4-6H PRN asthma 02/03/23 aerosol inhaler (Ventolin HFA) #1 ea triamcinolone acetonide 0.1 % 1 applic topical DAILY #30 grams 02/03/23 topical ointment amoxicillin 875 mg-potassium 1 tab PO Q12H dental infection 10 12/07/23 clavulanate 125 mg tablet days #20 tabs baclofen 10 mg tablet 10 mg PO TID 10 days #30 tabs 12/07/23 lidocaine 5 % topical patch 1 patch topical DAILY #15 ea 12/07/23 Allergies Allergy/AdvReac Type Severity Reaction Status Date / Time No Known Drug Allergies Allergy Verified 12/07/23 14:06 Review of Systems <Jessica Briceno PA-C - Last Filed: 12/07/23 17:48> Review of Systems Narrative: See HPI Patient History <Jessica Briceno PA-C - Last Filed: 12/07/23 17:48> Medical History Elevated high sensitivity C-reactive protein Obesity Annual physical exam Social History Smoking Status: Never smoker alcohol intake: current (special occasions ) substance use type: marijuana (edibles every few days ) Smoking Status: Never smoker alcohol intake frequency: holidays/special occasions only Substance Use Type: marijuana Exam <Jessica Briceno PA-C - Last Filed: 12/07/23 17:48> Narrative Exam Narrative: GENERAL: [33] year old overweight patient appears stated age. Well-developed patient, in mild distress. HEAD: Atraumatic. Normocephalic. EYES: Pupils equal round and reactive. Extraocular motions intact. No scleral icterus. No injection or drainage. ENT: Nose without bleeding, purulent drainage. Patient has multiple missing teeth, tooth number 3 on the right upper is tender to palpation without evidence of abscess of the gums and no visible swelling present. Throat without erythema, tonsillar hypertrophy or exudate. Airway patent. NECK: Trachea midline. Non tender CARDIOVASCULAR: Regular rate and rhythm without murmurs, gallops, or rubs. RESPIRATORY: Clear to auscultation. Breath sounds equal bilaterally. No wheezes, rales, or rhonchi. GASTROINTESTINAL: Abdomen soft, non-tender, nondistended. EXTREMITIES: No edema or joint tenderness. Strength with flexion and extension of the knee and hip is intact with active range of motion. Increased left low back pain with resisted flexion of the knee and left hip. BACK: There is midline tenderness at L5-S1 level. Patient also has paraspinal muscle tenderness/tightness of the lumbar region without radiation. Otherwise back is Nontender without deformity or crepitance. No flank tenderness. Is a positive straight leg raise at 45? on the left. NEURO: AOx3. SKIN: No rash or erythema of visible areas Initial Vital Signs Initial Vital Signs: Vital Signs Temperature 97.5 F L 12/07/23 14:06 Pulse Rate 95 H 12/07/23 14:06 Respiratory Rate 18 12/07/23 14:06 Blood Pressure 147/80 H 12/07/23 14:06 Pulse Oximetry 96 12/07/23 14:06 Oxygen Delivery Method Room Air 12/07/23 14:06 <Gloria Gonzalez MD - Last Filed: 12/08/23 07:08> Initial Vital Signs Initial Vital Signs: Vital Signs Temperature 97.5 F L 12/07/23 14:06 Pulse Rate 95 H 12/07/23 14:06 Respiratory Rate 18 12/07/23 14:06 Blood Pressure 147/80 H 12/07/23 14:06 Pulse Oximetry 96 12/07/23 14:06 Oxygen Delivery Method Room Air 12/07/23 14:06 Course <Jessica Briceno PA-C - Last Filed: 12/07/23 17:48> Orders Ordered: Discontinued Medications Ketorolac Tromethamine (Ketorolac 30 Mg/Ml Vial) 15 mg IM NOW ONE Stop: 12/07/23 14:52 Last Admin: 12/07/23 15:11 Dose: 15 mg Documented By: NL Vital Signs Vital signs: Vital Signs - 8 hr 12/07/23 14:06 12/07/23 16:25 Temperature 97.5 F L Pulse Rate 95 H 89 Respiratory Rate 18 18 Blood Pressure 147/80 H 128/77 Pulse Oximetry 96 99 Oxygen Delivery Method Room Air Room Air <Gloria Gonzalez MD - Last Filed: 12/08/23 07:08> Orders Ordered: Discontinued Medications Ketorolac Tromethamine (Ketorolac 30 Mg/Ml Vial) 15 mg IM NOW ONE Stop: 12/07/23 14:52 Last Admin: 12/07/23 15:11 Dose: 15 mg Documented By: NL Vital Signs Vital signs: Vital Signs - 8 hr 12/07/23 14:06 12/07/23 16:25 Temperature 97.5 F L Pulse Rate 95 H 89 Respiratory Rate 18 18 Blood Pressure 147/80 H 128/77 Pulse Oximetry 96 99 Oxygen Delivery Method Room Air Room Air MDM - Back Pain/Injury <Jessica Briceno PA-C - Last Filed: 12/07/23 17:48> Differential Diagnosis Differential diagnosis: Likely lumbar radiculopathy, strain of lumbar region and other (Dental infection, muscle spasm, L5 transitional anatomy) Imaging Data lumbar xr: My Impression: Agree with Radiology interpretation Radiologist's Impression: [address] [address] XRay Report Signed Patient: Ab Johnson MR#: [id number] : 1990 Acct:[id number] Age/Sex: 33 / M Date of Service: 12/07/23 Loc: ED Accession Number: [id number] Procedure: XR lumbar spine 2-3V Ordering Provider: Jessica Briceno P.A-C PROCEDURE: XR LUMBAR SPINE 2-3V INDICATIONS: midline L5/S1 tender, stepped over lrg dog while lifting TECHNIQUE: 3 views of the lumbar spine were acquired. COMPARISON: None. FINDINGS: Bones: 5 [id number] vertebrae are present. 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 [place] left curvature of the lumbar spine. No vertebral body compression fractures. No suspicious bony lesions. Soft tissues: Overlying bowel gas pattern is normal. No suspicious soft tissue calcifications. IMPRESSION: Transitional anatomy of L5 which may be a source of pain. Dictated by: Martin Lafleur M.D. on 12/07/2023 at 14:17 Approved by: Martin Lafleur M.D. on 12/07/2023 at 14:23 [facility] Narrative Medical decision making narrative: This is a 33-year-old male with history of obesity, KATELYN, intermittent asthma who presents with concern for left low back pain after he missed stepped stepping over a dog while caring an aquarium with about 5 gal of water in it. As patient does have midline spinous process tenderness at L5-S1 x-rays are obtained. Notable for transitional anatomy of L5 vertebra. Patient also has muscle tenderness and tightness of the left lumbar region with no radiation to the left leg or elsewhere, suspect that he has muscle spasming and a back muscle strain in the lumbar region. Discussed options with the patient and prescription for muscle relaxer as well as topical lidocaine today. Encouraged heat, ice, gentle stretching follow-up with primary care provider. See orthopedics if he has not improving within 21 days. Regarding patient's dental pain and infection he is prescribed a course of Augmentin today given Re worsening after improvement with antibiotics, he has no sign suggestive of a severe infection or sepsis and labs and imaging are not obtained. He is advised to follow up closely with dentistry. Return precautions provided, follow-up plan discussed, all questions answered. Discharge Plan Departure Patient Disposition: Home Clinical Impression: Muscle spasm of back, Transitional vertebra, Infection of tooth Activity Restrictions/Additional Instructions: *You have been diagnosed with [muscle strain/muscle spasm] *What to do: *Please continue to take your regular medications as directed. [ 2] New medication prescriptions sent to your pharmacy: [Baclofen, Lidocaine patch] [ ] New medication written as a paper prescription [ ] No new medications given *Please follow up with your primary care provider in 2-3 days, call for an appointment. Let them know you were seen in the Emergency Department and that we ask that you be seen in follow up. We will electronically transmit a record of today's note if your PCP is in our system. You are having some left-sided low back pain after you or carrying an aquarium when you had to step over your large dog this morning. I think you are having some muscle spasming which likely accounts for your pain and I have prescribed a muscle relaxer called baclofen which may be helpful for this, I have also prescribed lidocaine patches that he can put on the area of pain for up to 12 hours a day I recommend trying heat and ice and gentle stretching and also using Tylenol and ibuprofen. You should not take ibuprofen or other NSAIDs until late tonight as we did give you a shot of a similar medicine today in the emergency department. You should not operate equipment or drink alcohol at the same time you are taking muscle relaxer. Your x-ray of the lumbar region looked okay however they did note that you have something called ?transitional anatomy? at the point where your lumbar spine meets your sacral spine in your low back. This simply means that the vertebrae are fused together at a level that is one level higher than is typical for most people. This is seen sometimes and is an anatomical variation that you have had since , however it could possibly contribute to the increased pain you are having after your injury today. If you are not improving over the next 7 days to 21 days with the above treatments you should consider seeing orthopedics for further evaluation. You can follow-up with your primary care provider otherwise for a recheck. Of course if your symptoms are worsening you should be re-evaluated sooner. In addition to your injury today he also had concern for a toothache/dental infection which has recently worsened despite taking antibiotics and seeing the dentist earlier this month, you are going to go in for dental surgery but not until December based on your exam and history I did go ahead and place you on an additional course of antibiotics. *If you do not have a primary care provider please contact the [facility] Resource line at [phone]. They will ask some questions about your medical history and help get you set up with a doctor in the community. *Return to Emergency Department if you should have any new, worsening or concerning symptoms, such as [fever greater than 101 F, shaking chills, worsening pain, persistent vomiting or other bothersome symptoms] Prescriptions: New baclofen 10 mg tablet 10 mg PO TID MDD 60mg 10 Days Qty: 30 0RF lidocaine 5 % adhesive patch,medicated 1 patch topical DAILY Qty: 15 1RF Rx Instructions: leave on most painful area for up to 12 hrs amoxicillin-pot clavulanate 875-125 mg tablet 1 tab PO Q12H 10 Days Qty: 20 0RF No Action triamcinolone acetonide 0.1 % ointment 1 applic topical DAILY Qty: 30 0RF Rx Instructions: use for 1 week both elbows, then stop, can repeat as needed albuterol sulfate [Ventolin HFA] 90 mcg/actuation HFA aerosol inhaler 2 puff inhalation Q4-6H PRN (Reason: asthma) Qty: 1 3RF Referrals: Aleta Gonzales DO [Primary Care Provider] - Stand Alone Forms: Patient Portal/API ED Sign-out <Gloria Gonzalez MD - Last Filed: 12/08/23 07:08> Cosign ED Attending Daveature Attestation: I did not see this patient. I was available all times for consultation.
--- NOTE | 2023-12-07 14:51 | DI.RAD.S_ITS ---
PROCEDURE: XR LUMBAR SPINE 2-3V INDICATIONS: midline L5/S1 tender, stepped over lrg dog while lifting TECHNIQUE: 3 views of the lumbar spine were acquired. COMPARISON: None. FINDINGS: Bones: 5 [id number] vertebrae are present. 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 [place] left curvature of the lumbar spine. No vertebral body compression fractures. No suspicious bony lesions. Soft tissues: Overlying bowel gas pattern is normal. No suspicious soft tissue calcifications. IMPRESSION: Transitional anatomy of L5 which may be a source of pain. Dictated by: Martin Lafleur M.D. on 12/07/2023 at 14:17 Approved by: Martin Lafleur M.D. on 12/07/2023 at 14:23
--- NOTE | 2023-12-07 14:52 | PC.NURSE ---
pt was carrying a 10gallon fish tank half full of water when dog ran in front of patient, he had to step over dog with left foot. pt states about 5 min later he started experiencing pain in his low left back that is intermittent with movement. tender to palpation on lower spine. did take ibuprofen after incident about 30.
[2023-12-07] MEDS: KETOROLAC 30 MG/ML VIAL 15 MG IM (15:11)
[2023-12-07 16:25] VITALS: BP 128/77; PULSE 89; RESP 18; O2SAT 99
== END 2023-12-07 16:26 | disposition home or self-care (01) ==
PROVIDERS: Emergency Provider Student in an Organized Health Care Education/Training Program; PCP Family Medicine
DX: M62.830 Muscle spasm of back (principal); Q76.49 Other congenital malformations of spine, not associated with scoliosis; K04.7 Periapical abscess without sinus
CPT/HCPCS: 72100; 96372; 99283; J1885

== ENCOUNTER 2025-01-13 20:05 | Emergency (ER) | payer OTHER, SELFPAY ==
[2025-01-13 20:12] VITALS: BP 142/94; PULSE 104; RESP 16; TEMP 36.6; O2SAT 97; BMI 33.0
--- NOTE | 2025-01-13 20:17 | DI.RAD.S_ITS ---
PROCEDURE: XR CHEST 1V INDICATIONS: cough TECHNIQUE: One view of the chest was acquired. COMPARISON: [facility], CR, XR CHEST 2V, 07/30/2022, 11:22. [facility], CR, XR CHEST 2V, 06/26/2021, 19:52. FINDINGS: Surgical changes and devices: None. Lungs and pleura: Lungs are clear. No pleural effusions or pneumothorax. Mediastinum: Mediastinal contours appear normal. Heart size is normal. Bones and chest wall: No suspicious bony lesions. Overlying soft tissues appear unremarkable. IMPRESSION: No acute cardiopulmonary abnormality is seen. Dictated by: Tim Mireles M.D. on 01/13/2025 at 20:57 Approved by: Tim Mireles M.D. on 01/13/2025 at 20:58
[2025-01-13 21:43] LABS: Influenza A - CEPHEID Flu A NEGATIVE (NEGATIVE); Influenza B - CEPHEID Flu B NEGATIVE (NEGATIVE); Respiratory Syncytial Virus Negative (Negative)
[2025-01-13 21:44] LABS: COVID-19 CEPHEID 4-PLEX PCR Negative (Negative)
--- NOTE | 2025-01-13 23:19 | ED.URI ---
HPI - URI/Sore Throat General Chief Complaint: Upper Respiratory Symptoms Stated Complaint: Cough, Abdominal Pain, Vomiting Time Seen by Provider: 01/13/25 22:46 Source: patient Mode of arrival: Ambulatory History of Present Illness HPI Narrative: 34-year-old gentleman presents with 1 month of cough with yellow white sputum production on with sinus drainage unrelieved with codeine Tessalon an inhaler that she was given 3 weeks ago at a walk-in clinic. He continues to be symptomatic with cough sinus drainage headache and subjective fever. Other than what is stated 14 point review of system is negative. Related Data Previous Rx's Medication Instructions Recorded albuterol sulfate 90 mcg/actuation 2 puff inhalation Q4-6H PRN asthma 02/03/23 aerosol inhaler (Ventolin HFA) #1 ea triamcinolone acetonide 0.1 % 1 applic topical DAILY #30 grams 02/03/23 topical ointment lidocaine 5 % topical patch 1 patch topical DAILY #15 ea 12/07/23 trazodone 150 mg tablet 150 mg PO BEDTIME PRN difficulty 12/07/24 sleeping #90 tabs codeine 10 mg-guaifenesin 200 mg/5 5 ml PO Q6H PRN cough #473 mL 01/13/25 mL oral liquid prednisone 20 mg tablet 20 mg PO DAILY #5 tabs 01/13/25 sulfamethoxazole 800 1 tab PO BID #14 tabs 01/13/25 mg-trimethoprim 160 mg tablet (Bactrim DS) Allergies Allergy/AdvReac Type Severity Reaction Status Date / Time No Known Drug Allergies Allergy Verified 12/07/24 15:21 Review of Systems Review of Systems ROS Unobtainable: All systems reviewed & are unremarkable except as noted in HPI and below Patient History Medical History Elevated high sensitivity C-reactive protein Obesity Annual physical exam Social History alcohol intake: current (special occasions ) substance use type: marijuana (edibles every few days ) Smoking Status: Never smoker alcohol intake frequency: holidays/special occasions only Exam Narrative Exam Narrative: GENERAL: [34] year old patient appears stated age. Well-developed patient, in mild distress. HEAD: Atraumatic. Normocephalic. EYES: Pupils equal round and reactive. Extraocular motions intact. No scleral icterus. No injection or drainage. ENT: Nose without bleeding, purulent drainage. Throat without erythema, tonsillar hypertrophy or exudate. Airway patent. B/L sinus TTP NECK: Trachea midline. Non tender CARDIOVASCULAR: Regular rate and rhythm without murmurs, gallops, or rubs. EXTREMITIES: No edema or joint tenderness. BACK: Nontender without deformity or crepitance. No flank tenderness. NEURO: AOx3. SKIN: No rash or erythema of visible areas Initial Vital Signs Initial Vital Signs: Vital Signs Temperature 97.8 F 01/13/25 20:12 Pulse Rate 104 H 01/13/25 20:12 Respiratory Rate 16 01/13/25 20:12 Blood Pressure 142/94 H 01/13/25 20:12 Pulse Oximetry 97 01/13/25 20:12 Oxygen Delivery Method Room Air 01/13/25 20:12 Course Orders Ordered: ED Orders 01/13/25 20:15 Covid-19 + FLU A/B + RSV - PCR Stat 01/13/25 20:17 CXR [XR chest 1V] Stat Amoxicillin/Clavulanate Potassium (Amoxicillin/Clav 875/125 Mg) 1 tab PO NOW ONE Stop: 01/13/25 23:19 Prednisone (Prednisone 20 Mg Tablet) 60 mg PO NOW ONE Stop: 01/13/25 23:19 Vital Signs Vital signs: Vital Signs - 8 hr 01/13/25 20:12 Temperature 97.8 F Pulse Rate 104 H Respiratory Rate 16 Blood Pressure 142/94 H Pulse Oximetry 97 Oxygen Delivery Method Room Air MDM - URI/Sore Throat Lab Data Labs: Lab Results 01/13/25 Range/Units 20:15 SARS-CoV-2 (PCR) Negative (Negative) Influenza A (RT-PCR) Flu a negative (NEGATIVE) Influenza B (RT-PCR) Flu b negative (NEGATIVE) RSV (PCR) Negative (Negative) Imaging Data Chest x-ray: Radiologist's Impression: [address] [address] XRay Report Signed Patient: Ab Johnson MR#: [id number] : 1990 Acct:[id number] Age/Sex: 34 / M Date of Service: 01/13/25 Loc: ED Accession Number: [id number] Procedure: XR chest 1V Ordering Provider: Familia Richards D.O. PROCEDURE: XR CHEST 1V INDICATIONS: cough TECHNIQUE: One view of the chest was acquired. COMPARISON: [facility], CR, XR CHEST 2V, 07/30/2022, 11:22. [facility], CR, XR CHEST 2V, 06/26/2021, 19:52. FINDINGS: Surgical changes and devices: None. Lungs and pleura: Lungs are clear. No pleural effusions or pneumothorax. Mediastinum: Mediastinal contours appear normal. Heart size is normal. Bones and chest wall: No suspicious bony lesions. Overlying soft tissues appear unremarkable. IMPRESSION: No acute cardiopulmonary abnormality is seen. Dictated by: Tim Mireles M.D. on 01/13/2025 at 20:57 Approved by: Tim Mireles M.D. on 01/13/2025 at 20:58 [facility] Narrative Medical decision making narrative: Vital signs nurse triage note medication list previous ER visits in all imaging modalities reviewed. Patient given Augmentin codeine and prednisone here. Patient will be discharged on Augmentin prednisone and codeine. Differential diagnosis include COVID flu RSV bronchitis pneumonia asthma and bacterial sinusitis. Discharge Plan Departure Patient Disposition: Home Clinical Impression: Acute bacterial sinusitis Instructions: DI for Sinusitis Activity Restrictions/Additional Instructions: Return with new or worsening symptoms. Take your medicines directed. Follow up PCP in 1-2 weeks if no improvement in symptoms. Prescriptions: New sulfamethoxazole-trimethoprim [Bactrim DS] 800-160 mg tablet 1 tab PO BID Qty: 14 0RF prednisone 20 mg tablet 20 mg PO DAILY Qty: 5 0RF codeine-guaifenesin 10-200 mg/5 mL liquid 5 ml PO Q6H PRN (Reason: cough) Qty: 473 0RF No Action trazodone 150 mg tablet 150 mg PO BEDTIME PRN (Reason: difficulty sleeping) Qty: 90 3RF triamcinolone acetonide 0.1 % ointment 1 applic topical DAILY Qty: 30 0RF Rx Instructions: use for 1 week both elbows, then stop, can repeat as needed albuterol sulfate [Ventolin HFA] 90 mcg/actuation HFA aerosol inhaler 2 puff inhalation Q4-6H PRN (Reason: asthma) Qty: 1 3RF lidocaine 5 % adhesive patch,medicated 1 patch topical DAILY Qty: 15 1RF Rx Instructions: leave on most painful area for up to 12 hrs Referrals: Aleta Gonzales DO [Primary Care Provider] - Stand Alone Forms: Patient Portal/API/Survey
[2025-01-13] MEDS: CODEINE/GUAIFENESIN LIQUID 5ML UDC 10 ML PO (23:32)
[2025-01-13] MEDS: AMOXICILLIN/CLAV 875/125 MG 1 TAB PO (23:33)
[2025-01-13] MEDS: predniSONE 20 MG TABLET 60 MG PO (23:33)
[2025-01-13 23:38] VITALS: BP 147/89; PULSE 105; RESP 21; O2SAT 96
== END 2025-01-13 23:40 | disposition home or self-care (01) ==
PROVIDERS: Emergency Provider Family Medicine; PCP Family Medicine
DX: J01.90 Acute sinusitis, unspecified (principal)
CPT/HCPCS: 0241U; 71045; 99283

== ENCOUNTER → 2025-04-02 08:24 | Outpatient (CLI) | payer OTHER, SELFPAY ==
[2025-04-02 09:27] LABS: Add Manual Diff / Slide Review NO; Hematocrit 44.4 % (41-53); Hemoglobin 15.3 g/dL (13.5-17.5); Lymphocytes Absolute Auto 2100 /uL (1100-4500); Mean Corpuscular HGB Conc 34.5 % (30-36); Mean Corpuscular Hemoglobin 29.7 PG (26-34); Mean Corpuscular Volume 85.9 fL (80-100); Platelet Count 246 X10^3/uL (150-400)
[2025-04-02 09:49] LABS: Hemoglobin A1C% w Est Avg Glu 5.4 % (4.0-6.0)
[2025-04-02 09:55] LABS: Alanine Aminotransferase 51 IU/L (<50); Albumin 4.6 g/dL (3.5-5.0); Albumin Globulin Ratio 1.8 (1.0-2.8); Alkaline Phosphatase 92 U/L (38-126); Blood Urea Nitrogen 13 mg/dL (9-20); Calcium 9.4 mg/dL (8.4-10.2); Carbon Dioxide 29 mmol/L (22-32); Chloride 104 mmol/L (98-107); Cholesterol 181 mg/dL (140-199); Estimated Glomerular Filt Rate > 60 mL/min (>60); Globulin 2.5 g/dL (1.7-4.1); Glucose 97 mg/dL (70-99); HDL Cholesterol 38 mg/dL (40-60); HEMOLYSIS < 15 (0-50); Potassium 4.9 mmol/L (3.4-5.1); Sodium 140 mmol/L (137-145); Total Protein 7.1 g/dL (6.3-8.2); Triglycerides 114 mg/dL (35-150)
[2025-04-02 10:25] LABS: TSH w/ Reflex to FT4 1.22 uIU/mL (0.47-4.68)
== END ==
PROVIDERS: PCP Family Medicine; Referring Provider Family Medicine; Visit Provider Family Medicine
DX: G47.33 Obstructive sleep apnea (adult) (pediatric) (principal); R79.82 Elevated C-reactive protein (CRP); E66.9 Obesity, unspecified
CPT/HCPCS: 36415; 80053; 80061; 83036; 84443; 85025; 86140